=== PATIENT | female | born 1975 | race Caucasian/White ===

== ENCOUNTER 2023-03-24 21:30 | Observation (INO) | payer BC ==
--- OUTSIDE RECORDS SUMMARY | 2023-03-24 21:33 | XMS REPORT | Continuity of Care Document ---
:1975 Author Organization [facility] t Address [address] [facility] [address] [place] [address] Care Team Providers Name Role Phone Mack Harris MD Primary Care Physician [phone] Anali Moran Attending Clinician Naeem Whitfield Attending Clinician ELINA GUTHRIE Attending Clinician Unavailable ELINA GUTHRIE Admitting Clinician Unavailable Problems Condition Condition Condition Status Onset Resolution Last Treating Co mments Source Name Details Category Date Date Treatment Clinician Date Left-sided Left-sided Disease Recurre Aaliyah w: [facility] failure failure 00:[facility]: g of this Medic al 00 note Center might be different from the original. Per patient since 2006 left side of heart is "weak". Chest pain Chest pain Disease Active [facility] Palpitatio Palpitati Problem Active 2019-07-11 Memoria ns ons 3- 22:02:35 l (finding) (finding) 00:00: Francie hernandez Active 00 02/16/2012 Problem 07/11/2019 Data migrated from [employer] on 04/25/15. [facility] Group Chest pain Chest Problem Active 2019-07-11 Allan christianson (finding) pain 3- 22:02:35 l (finding) 00:00: Jesús Active 00 02/16/2012 Problem 07/11/2019 Data migrated from [employer] on 04/25/15. Medical Group Anxiety Anxiety Problem Active 2019-07-11 Me moria (finding) (finding) 22:02:35 l Active [facility] Problem 07/11/2019 Medical Group Benign Benign Problem Active 2019-07-11 Jose petra essential essential 22:02:35 l hypertensi hypertensi He rmann on on (disorder) (disorder) Active Problem 07/11/2019 Data migrated from [facility] on 04/25/15. Medical Group Edema of Edema of Problem Active 2019-07-11 Memoria lower lower 22:02:35 l extremity extremity Herm mary (finding) (finding) Active Problem 07/11/2019 Medical Group Ex-smoker Ex-smoker Problem Active 2019-07-11 Memoria (finding) (finding) 22:02:35 l Active [facility] Problem 07/11/2019 Medical Group Hypertensi Hypertens Problem Active 2019-07-11 Memoria ve juanito 22:02:35 l disorder, disorder, Herm mary systemic systemic arterial arterial (disorder) (disorder) Active Problem 07/11/2019 Medical Group Injury of Injury of Problem Active 2019-07-11 Memoria upper arm upper arm 22:02:35 l (disorder) (disorder) He rmann Active Problem 07/11/2019 Medical Group Reflux Reflux Problem Active 2019-07-11 Mem oria (finding) (finding) 22:02:35 l Active [facility] Problem 07/11/2019 Medical Group Syncope Syncope Problem Active 2019-07-11 Me moria (disorder) (disorder) 22:02:35 l Active [facility] Problem 07/11/2019 Medical Group Morbid Morbid Disease Recurre [facility] (severe[facility] (severe[facility] obesity obesity Medical due to due to Center excess excess calories calories Panic Panic Disease Active [facility] attack attack [facility] Allergies, Adverse Reactions, Alerts Allergy Allergy Status Severity Reaction(s) Onset Inactive Treating Comm ents Source Name Type Date Date Clinician Jace Donald Active Hives Method i omycin ty to [facility] adverse 00:00: Hospita reaction 00 l s to drug Erythrom Propensi Active GI Method i ycin ty to Intolerance -12 st adverse 00:00: Hospita reaction 00 l s to drug Hydrocod Propensi Active Anxiety Metho di one ty to 9-12 st adverse 00:00: Hospita reaction 00 l s to drug Clindamy Propensi Active Nausea And [facility] Hcl ty to Vomiting 08-14 [facility] adverse 00:00: Medical reaction 00 Center s Tetracyc Propensi Active Nausea And [facility] lines ty to Vomiting 08-14 [facility] adverse 00:00: Medical reaction 00 Center s Clarithr Drug Active [facility] omycin Allergy 04-20 [facility] 00:00: Medical 00 [facility] Penicill Drug Active [facility] ins Allergy 04-20 [facility] 00:00: Medical 00 [place] penicill penicill Active Memori a ins<sup> ins<sup> l 1</sup> 1</sup> Jesús erythrom erythrom Active [facility] a ycin ycin l [facility] Family History Family Member Diagnosis Comments Start Date Stop Date Source Natural daughter Diabetes [facility] Natural father Cancer [facility] Maternal grandmother Heart disease [facility] Natural mother Arthritis [facility] Natural mother Cancer [facility] Natural mother Heart disease [facility] Natural mother Hyperlipidemia [facility] Natural son Mental illness [facility] Social History Social Habit Start Date Stop Date Quantity Comments Source Gender identity [facility] History of tobacco Current smoker [facility] Alcohol intake 2019-08-12 2019-08-12 Current drinker [facility] 00:00:00 00:00:00 of [facility] (finding) Alcohol Comment 2019-08-08 2019-08-08 occasional [facility] 00:[facility]:00 00:[facility]:00 Hospital Tobacco use and 2019-08-08 2019-08-08 Smokeless tobacco Me thodist exposure 00:00:00 00:00:00 non-user Hospital Cigarettes smoked 2018-08-14 2018-08-14 [facility] current (pack per 00:00:00 00:00:00 Medical Center day) - Reported Sex Ass[birth year] At [birth year] [facility] 00:[facility]:00 00:[facility]:00 Hospital Smoking Status Start Date Stop Date Source Social History 2019-06-04 18:15:51 2019-06-04 18:15:51 [facility] Medications Ordered Filled Start Stop Current Ordering Indication Dosage Frequency Signature Comments Components Source Medication Medication Date Date Medication? Clinician (SIG) Name Name meloxicam Yes 15mg QD Take 15 mg Me thodi (MOBIC) 15 9-[address] mg tablet 11:33: daily. Hospit a 18 l metaxalone Yes 800mg [id number] Take 800 [facility] (SKELAXIN) 9-[id number] 800 MG 11:33: 3D mouth 3 Hospita tablet 18 (three) l times a day. ALPRAZolam Yes .25mg QD Take 0.25 M ethodi (XANAX) 9-[address] 0.25 MG 11:33: mouth Hospita tablet 18 nightly as l needed for anxiety. Lidocaine Yes 1 patch, Jose petra 0.05 MG/MG 7 TOP, l Transdermal 18:25: Daily, # He rmann Patch 00 30 patch, 2 Refill(s), Pharmacy: [place] [id number] Alprazolam Yes 0.25 mg = Me moria 0.25 MG 06-04 1 tab, PO, l Oral Tablet 18:17: TID, 0 Herm mary [Xanax] 00 Refill(s) Advair Yes 1 puff, Memoria Diskus 100 709 INHALATION l mcg-50 mcg 18:04: , BID, 0 [facility] inhalation 00 Refill(s) powder meloxicam Yes 15 mg = 1 Mem oria 15 mg oral 09 tab, PO, l tablet 18:04: Daily, # [facility] 00 90 tab, 0 Refill(s) enalapril Yes 2.5mg QD Take 2.[address] (VASOTEC) 9-18 mg by [facility] 2.5 MG 23:01: mouth Medical tablet 49 daily. Center meclizine Yes 25mg Take [address] (ANTIVERT) 9-18 by mouth 3 Arlene es 32 MG 23:01: (three) Medical tablet 49 times Center daily as needed Unsure of mg. . escitalopra Yes 5mg QD Take [address] m oxalate 6-28 by mouth [facility] (LEXAPRO) 5 18:28: daily Medic al MG tablet 28 Takes 1/2 Cente r tablet for 2.5 mg . meloxicam Yes 15mg QD Take [address] (MOBIC) 15 6-28 by mouth [facility] MG tablet 18:28: daily. Medica l 28 Center ALPRAZolam Yes .25mg Take 0.[address] (XANAX) 6-28 mg by [facility] 0.25 MG 18:28: mouth Medical tablet 28 every Center night as needed for Anxiety. aspirin 81 Yes 81mg QD Take [address] MG EC 6-28 by mouth [facility] tablet 18:28: daily. Medical 28 Center ranitidine Yes gastroesoph 150mg Take [address] (ZANTAC) 6-28 ageal mg by [facility] 150 MG 18:28: reflux mouth 2 Medica l tablet 28 disease (two) Center times daily as needed for Heartburn. Vital Signs Vital Name Observation Time Observation Value Comments Source Temperature Oral (F) 2019-06-04 18:06:00 98.0 F [facility] Heart Rate 2019-06-04 18:06:00 [facility] BMI Calculated 2019-06-04 18:06:00 Ioana al Jesús Weight 2019-06-04 18:06:00 [facility] Height 2019-06-04 18:06:00 175.26 cm [facility] Systolic (mm Hg) 2019-06-04 18:06:00 Jose Espinosa Diastolic (mm Hg) 2019-06-04 18:06:00 [facility] berenice [facility] Procedures Procedure Date / Time Performed Performing Clinician Marcel edmond Arthroscopy of knee [facility] Repair of meniscus [facility] Plan of Care Planned Activity Planned Date Details Comments Source Future Scheduled 2023-02-26 COVID-19 VACCINE (#1) [facility] Test 11:17:23 [code = COVID-19 VACCINE (#1)] Future Scheduled 2023-02-26 Screening for [facility] Test 11:17:23 malignant neoplasm of cervix (procedure) [code = 596915559] Future Scheduled 2023-02-26 BREAST CANCER [facility] Test 11:17:23 SCREENING [code = BREAST CANCER SCREENING] Future Scheduled 2023-02-26 COLONOSCOPY SCREENING [facility] Test 11:17:23 [code = COLONOSCOPY SCREENING] Future Scheduled 2023-02-26 INFLUENZA VACCINE [facility] Test 11:17:23 [code = INFLUENZA VACCINE] Encounters Start End Encounter Admission Attending Care Care Encounter Source Date/Time Date/Time Type Type Clinicians Facility Department ID 2019-07-09 2019-07-09 Ambulatory nullFlavo [facility] [id number] Memoria 18:15:00 18:15:00 Pre-Reg r Primary 03 l Care Charly Dolan sarita 2019-07-09 2019-07-09 Outpatient JESSIECRISPIN CRISPIN [id number] Memoria 13:15:00 13:15:00 03 radha Espinosa 2019-07-09 2019-07-09 Outpatient Dean [facility] [id number] 13:15:00 13:15:00 Anali 03 2019-06-04 2019-06-05 Outpatient nullFlavo [facility] [id number] Memoria 18:00:00 04:59:59 r Primary 02 l Genaro Dolan nn 2019-06-04 2019-06-04 Outpatient Nahid [facility] [id number] 13:00:00 23:59:59 Naeem Silvestre 02 2019-06-04 2019-06-[address] [id number] Memoria 13:00:00 13:00:00 02 radha [facility] Results Test Description Test Time Test Comments Results Result Comments Source POCT-GLUCOSE METER 2017-05-24 17:19:00 Test Item Value Reference Range Interpretation Comme [facility] POC-GLUCOSE METER ([place]) (test 105 mg/dL 70-110 TESTED AT [facility] [id number] [facility] code = 1538) WAY [facility] [address] TSH/FREE T4 IF [id number] 16:48:00 Test Item Value Reference Range Interpretation Comments THYROID STIMULATING HORMONE 1.25 uIU/mL 0.35-5.50 (BEAKER) (test code = 772) [id number] 15:15:00 Test Item Value Reference Range Interpretation Comments D-DIMER QUANTITATIVE (BEAKER) 0.45 MG/L FEU <0.50 (test code = 671) Intended Use: The D-Dimer Assay can be used to aid in the diagnosis of Deep Vein Thrombosis (DVT) and Pulmonary Embolism Disease (PED).In patients with low pre- test probability, various studies concerning STA Liatest D-dimer test have reported that with a cutoff value of 0.50 MG/L FEU, the Negative Predictive Value (NPV) regarding the exclusion of thrombosis is within 95-100% range. CREATINE KINASE (CK), TOTAL AND [id number] 06:26:00 Test Item Value Reference Range Interpretation Comments CREATINE KINASE TOTAL (BEAKER) 110 U/L 29-168 (test code = 380) CREATINE KINASE-MB (BEAKER) (test 1.6 ng/mL 0.0-4.9 code = 750) CREATINE KINASE-MB INDEX (BEAKER) 1.5 % (test code = 395) CK-MB Reference Range:<5 Normal5-10 Borderline>10 AbnormalTROPONIN I 2017-05-24 06:26:00 Test Item Value Reference Range Interpretation Comments TROPONIN I (BEAKER) (test code = 0.01 ng/mL 0.00-0.15 397) Troponin I (TnI) levels must be interpreted in the context of the presenting symptoms and the clinical findings. Elevated TnI levels indicate myocardial damage, but are not specific for ischemic heart disease. Elevated TnI levels are seen in patients with other cardiac conditions (including myocarditis and congestive heart failure), and slight TnI elevations occur in patients with other conditions, including sepsis, renal failure, acidosis, acute neurological disease, and persistent tachyarrhythmia.HEPATIC FUNCTION [id number] 06:18:00 Test Item Value Reference Range Interpretation Comments TOTAL PROTEIN (BEAKER) (test code = 6.0 gm/dL 6.0-8.5 770) ALBUMIN (BEAKER) (test code = 1145) 3.4 g/dL 3.5-5.0 L BILIRUBIN TOTAL (BEAKER) (test code 0.3 mg/dL 0.1-1.3 = 377) BILIRUBIN DIRECT (BEAKER) (test 0.1 mg/dL 0.0-0.5 code = 706) ALKALINE PHOSPHATASE (BEAKER) (test 51 U/L 30-115 code = 346) AST (SGOT) (BEAKER) (test code = 12 U/L 5-40 353) ALT (SGPT) (BEAKER) (test code = 13 U/L 6-50 347) [id number] 06:18:00 Test Item Value Reference Range Interpretation Comments MAGNESIUM (BEAKER) (test code = 1.8 mg/dL 1.5-3.0 627) BASIC METABOLIC [id number] 06:18:00 Test Item Value Reference Range Interpretation Comments SODIUM (BEAKER) 140 meq/L 135-148 (test code = 381) POTASSIUM (BEAKER) 3.8 meq/L 3.5-5.5 (test code = 379) CHLORIDE (BEAKER) 107 meq/L 98-106 H (test code = 382) CO2 (BEAKER) (test 27 meq/L 20-31 code = 355) BLOOD UREA NITROGEN 14 mg/dL 10-26 (BEAKER) (test code = 354) CREATININE (BEAKER) 0.73 mg/dL 0.50-1.20 (test code = 358) GLUCOSE RANDOM 96 mg/dL 70-110 (BEAKER) (test code = 652) CALCIUM (BEAKER) 8.6 mg/dL 8.5-10.5 (test code = 697) EGFR (BEAKER) (test 87 mL/min/1.73 ESTIMA RITIKA GFR IS code = 1092) sq m NOT ACCURATE CREATININE CLEARANCE IN PREDICTING GLOMERULAR FILTRATION RATE . ESTIMATED GFR I S NOT APPLICABLE FOR DIALYSIS PATIEN TS. CBC W/PLT COUNT & AUTO [id number] 05:53:00 Test Item Value Reference Range Interpretation Comments WHITE BLOOD CELL COUNT (BEAKER) 5.2 K/ L 4.0-10.0 (test code = 775) RED BLOOD CELL COUNT (BEAKER) 4.12 M/ L 4.00-5.00 (test code = 761) HEMOGLOBIN (BEAKER) (test code = 12.1 GM/DL 12.0-15.0 410) HEMATOCRIT (BEAKER) (test code = 37.1 % 36.0-45.0 411) MEAN CORPUSCULAR VOLUME (BEAKER) 89.9 fL 82.0-99.0 (test code = 753) MEAN CORPUSCULAR HEMOGLOBIN 29.5 pg 27.0-33.0 (BEAKER) (test code = 751) MEAN CORPUSCULAR HEMOGLOBIN CONC 32.8 GM/DL 32.0-36.0 (BEAKER) (test code = 752) RED CELL DISTRIBUTION WIDTH 12.4 % 12.0-15.0 (BEAKER) (test code = 412) PLATELET COUNT (BEAKER) (test 257 K/CU MM 150-430 code = 756) MEAN PLATELET VOLUME (BEAKER) 6.7 fL 6.5-10.5 (test code = 754) NUCLEATED RED BLOOD CELLS 0 /100 WBC 0-0 (BEAKER) (test code = 413) NEUTROPHILS RELATIVE PERCENT 55 % (BEAKER) (test code = 429) LYMPHOCYTES RELATIVE PERCENT 35 % (BEAKER) (test code = 430) MONOCYTES RELATIVE PERCENT 8 % (BEAKER) (test code = 431) EOSINOPHILS RELATIVE PERCENT 2 % (BEAKER) (test code = 432) BASOPHILS RELATIVE PERCENT 0 % (BEAKER) (test code = 437) NEUTROPHILS ABSOLUTE COUNT 2.80 K/ L 1.80-8.00 (BEAKER) (test code = 670) LYMPHOCYTES ABSOLUTE COUNT 1.80 K/ L 1.48-4.50 (BEAKER) (test code = 414) MONOCYTES ABSOLUTE COUNT (BEAKER) 0.40 K/ L 0.00-1.30 (test code = 415) EOSINOPHILS ABSOLUTE COUNT 0.10 K/ L 0.00-0.50 (BEAKER) (test code = 416) BASOPHILS ABSOLUTE COUNT (BEAKER) 0.00 K/ L 0.00-0.20 (test code = 417) B-TYPE NATRIURETIC FACTOR (BNP)2017-05-24 01:31:00 Test Item Value Reference Range Interpretation Comments B-TYPE NATRIURETIC PEPTIDE (BEAKER) 42 pg/mL 0-100 (test code = 700) CREATINE KINASE (CK), TOTAL AND [id number] 01:30:00 Test Item Value Reference Range Interpretation Comments CREATINE KINASE TOTAL (BEAKER) 119 U/L 29-168 (test code = 380) CREATINE KINASE-MB (BEAKER) (test 1.8 ng/mL 0.0-4.9 code = 750) CREATINE KINASE-MB INDEX (BEAKER) 1.5 % (test code = 395) CK-MB Reference Range:<5 Normal5-10 Borderline>10 AbnormalTROPONIN I 2017-05-24 01:30:00 Test Item Value Reference Range Interpretation Comments TROPONIN I (BEAKER) (test code = 397) < ng/mL 0.00-0.15 Troponin I (TnI) levels must be interpreted in the context of the presenting symptoms and the clinical findings. Elevated TnI levels indicate myocardial damage, but are not specific for ischemic heart disease. Elevated TnI levels are seen in patients with other cardiac conditions (including myocarditis and congestive heart failure), and slight TnI elevations occur in patients with other conditions, including sepsis, renal failure, acidosis, acute neurological disease, and persistent tachyarrhythmia.C-REACTIVE [id number] 01:23:00 Test Item Value Reference Range Interpretation Comments C-REACTIVE PROTEIN (PADMINIAKER) (test 0.35 mg/dL 0.00-0.50 code = 676)
[2023-03-24] MEDS ORDERED: ASPIRIN EC 81 MG TAB PO ONE (21:53)
[2023-03-24] MEDS ORDERED: NITROGLYCERIN 1 GM PKT TD ONE (21:53)
[2023-03-24 21:56] LABS: Absolute Lymphocytes (CBC) 2.3 K/uL (0.7-4.9); Hematocrit 38.3 % (36.0-45.0); Lymphocytes % 38.6 % (15.3-44.8); MCV 87.3 fL (80-100); MPV 6.3 fL (7.6-11.3); RBC Red Blood Cell Count 4.39 M/uL (3.86-4.86)
[2023-03-24] MEDS ORDERED: BUMETANIDE 1 MG/4 ML VIAL ONE (22:03)
[2023-03-24 22:18] LABS: ALT/SGPT 38 U/L (13-56); AST/SGOT 21 U/L (15-37); Albumin 3.4 g/dL (3.4-5.0); Alkaline Phosphatase 71 U/L (45-117); BUN Blood Urea Nitrogen 15 mg/dL (7-18); Bicarbonate 30 mEq/L (21-32); Bilirubin Total 0.2 mg/dL (0.2-1.0); Glomerular Filtration Rate 76 ml/min (=/>90); Glucose Level 112 mg/dL (74-106); Magnesium 1.6 mg/dL (1.6-2.4); NT PRO-BNP 179 pg/mL (<125); Potassium 3.4 mEq/L (3.5-5.1); Protein, Total 6.9 g/dL (6.4-8.2); Sodium Level 137 mEq/L (136-145); Troponin High Sensitivity 10.8 pg/mL (<58.9)
[2023-03-24 22:24] LABS: Bilirubin Direct < 0.1 mg/dL (0-0.2)
[2023-03-24 22:31] LABS: Protime INR 0.95
--- NOTE | 2023-03-25 00:27 | ER ---
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 Patient richard stated had elevated BP issues for 4 days with restarting Lisinopril 10mg yesterday per her Dr. Coronavirus screen: Vaccine status: Patient reports being unvaccinated. Client denies travel out of the [place] in the last 14 days. At this time, the client does not indicate any symptoms associated with coronavirus-19. Ebola Screen: Patient negative for fever greater than or equal to 101.5 degrees Fahrenheit, and additional compatible Ebola Virus Disease symptoms. Initial Sepsis Screen: Does the patient meet any 2 criteria? No. Patient's initial sepsis screen is negative. Does the patient have a suspected source of infection? No. Patient's initial sepsis screen is negative. Risk Assessment: Do you want to hurt yourself or someone else? Patient reports no desire to harm self or others. 21:44 Method Of Arrival: Wheelchair mb9 21:44 Acuity: JESSICA 2 mb9 03/25 04:26 Onset of symptoms was March 24, 2023. as6 Historical: - Allergies: 03/24 21:48 Biaxin; mb9 - PMHx: 21:48 Hypertensive disorder; mb9 - PSHx: 21:48 back surgery; left knee surgery; mb9 - Immunization history:: Adult Immunizations not up to date. - Social history:: Patient/guardian denies using alcohol, street drugs, IV drugs, caffeine, over the counter diet medications, tobacco products, Smoking status: Patient/guardian denies using tobacco. - Family history:: not pertinent. Screenin:17 [facility] ED Fall Risk Assessment (Adult) Score/Fall Risk Level 0 - 2 = Low Risk. Abuse as6 screen: Denies threats or abuse. Denies injuries from another. Nutritional screening: No deficits noted. Tuberculosis screening: No symptoms or risk factors identified. Assessment: 21:40 General: Appears uncomfortable, obese, Behavior is cooperative, anxious, crying. Pain: as6 Complains of pain in chest. Neuro: Level of Consciousness is awake, alert, obeys commands, Oriented to person, place, time, situation. Cardiovascular: Reports chest pain, shortness of breath. Respiratory: Reports shortness of breath Respiratory effort is even, unlabored, Respiratory pattern is regular, symmetrical. 23:08 Reassessment: Patient appears in no apparent distress at this time. Patient and/or jb4 family updated on plan of care and expected duration. Pain level reassessed. Patient is alert, oriented x 3, equal unlabored respirations, skin warm/dry/pink. Vital Signs: 21:44 BP 176 / 113; Pulse 85; Resp 18; Temp 98.7; Pulse Ox 100% on R/A; Weight 158.76 kg; mb9 Height 5 ft. 8 in. ; Pain 5/10; 22:14 BP 164 / 92; Pulse 86; Resp 14 S; Pulse Ox 99% on R/A; as6 23:08 BP 128 / 80; Pulse 85; Resp 16; Pulse Ox 98% on R/A; jb4 03/25 00:00 BP 130 / 61; Pulse 98; Resp 18 S; Pulse Ox 98% on R/A; as6 01:00 BP 112 / 61; Pulse 83; Resp 19 S; Pulse Ox 98% on R/A; as6 02:00 BP 142 / 72; Pulse 94; Resp 18 S; Pulse Ox 99% on R/A; as6 04:25 BP 132 / 72; Pulse 84; Resp 19 S; Temp 97.9(O); Pulse Ox 98% on R/A; as6 03/24 21:44 Body Mass Index 53.22 (158.76 kg, 172.72 cm) mb9 03/24 21:44 Pain Scale: Adult 9 ED Course: 03/24 21:32 Patient arrived in ED. mb9 21:37 Colby Chapman MD is Attending Physician. sp4 21:43 Charles Sellers, KADEN is Primary Nurse. as6 21:46 Inserted saline lock: 20 gauge in right antecubital area, using aseptic technique. as6 Blood collected. 21:46 Basic Metabolic Panel Sent. as6 21:46 CBC with Diff Sent. as6 21:46 D-Dimer Sent. as6 21:46 LFT's Sent. as6 21:46 Magnesium Sent. as6 21:46 NT PRO-BNP Sent. as6 21:46 PT-INR Sent. as6 21:46 Troponin HS Sent. as6 21:48 Triage completed. mb9 21:48 Arm band placed on. as6 22:17 Placed in gown. Bed in low position. Call light in reach. Side rails up X 1. Client as6 placed on continuous cardiac and pulse oximetry monitoring. NIBP monitoring applied. 22:40 XRAY Chest (1 view) In Process Unspecified. EDMS 03/25 00:26 Vic Castro MD is Hospitalizing Provider. sp4 02:20 CT Chest For PE Angio In Process Unspecified. EDMS 02:20 CT Head Brain wo Cont In Process Unspecified. EDMS 04:26 No provider procedures requiring assistance completed. Patient admitted, IV remains in as6 place. 07:36 Primary Nurse role handed off by Charles Sellers, KADEN bp 07:36 Ralph Prasad, KADEN is Primary Nurse. bp Administered Medications: 03/24 21:58 Drug: Aspirin PO Chewable Tablet 324 mg Route: PO; as6 03/25 04:29 Follow up: Response: No adverse reaction as6 03/24 21:58 Drug: Nitroglycerin Transdermal Ointment 2 % 1 inches Route: Transdermal; Site: as6 anterior chest wall; 03/25 04:29 Follow up: Response: No adverse reaction as6 03/24 22:14 Drug: Bumetanide IVP 1 mg Route: IVP; Site: right antecubital; as6 03/25 04:29 Follow up: Response: No adverse reaction as6 02:19 Drug: Acetaminophen PO 1000 mg Route: PO; as6 04:29 Follow up: Response: No adverse reaction as6 02:19 Not Given (Patient Refused): Ibuprofen PO 800 mg PO once as6 Medication: 04:26 VIS not applicable for this client. as6 Outcome: 00:26 Decision to Hospitalize by Provider. sp4 04:26 Admitted to ER Hold. Please see [facility] for further documentation. as6 04:26 Condition: stable 04:26 Instructed on the need for admit. 16:34 Patient left the ED. bp Signatures: Dispatcher [facility] EDAidan Pulido, RN RN jb4 Ralph Prasad, RN RN bp Charles Sellers, KADEN RN as6 Jessica Bates, RN RN mb9 Colby Chapman MD MD sp4 Corrections: (The following items were deleted from the chart) 03/24 22:17 22:15 General: Appears uncomfortable, obese, Behavior is cooperative, anxious, crying, as6 as6 22:17 22:15 Pain: Complains of pain in chest as6 as6 22:17 22:15 Neuro: Level of Consciousness is awake, alert, obeys commands, Oriented to as6 person, place, time, situation, as6 22:17 22:15 Cardiovascular: Reports chest pain, shortness of breath, as6 as6 22:17 22:15 Respiratory: Reports shortness of breath Respiratory effort is even, unlabored, as6 Respiratory pattern is regular, symmetrical, as6
--- NOTE | 2023-03-25 00:27 | EDPHYS ---
Physician Documentation [facility] Name: Jacinto Paige Age: 47 yrs Sex: Female : 1975 Arrival Date: 03/24/2023 Time: 21:30 Bed 5 Private MD: ED Physician Colby Chapman HPI: 03/25 00:19 This 47 yrs old Female presents to ER via Wheelchair with complaints of chest sp4 pain. 00:19 47-year-old female with history of morbid obesity left ventricular heart failure sp4 hypertension presents with acute onset chest pain just prior to arrival associated with radiation to left arm. Patient on arrival reports anxiety. Patient denied shortness of breath, syncope denied diaphoresis and palpitations. Patient's cupola liner helper is Dr. Castle , primary MD is Dr. Flood. Historical: - Allergies: 03/24 21:48 Biaxin; mb9 - PMHx: 21:48 Hypertensive disorder; mb9 - PSHx: 21:48 back surgery; left knee surgery; mb9 - Immunization history:: Adult Immunizations not up to date. - Social history:: Patient/guardian denies using alcohol, street drugs, IV drugs, caffeine, over the counter diet medications, tobacco products, Smoking status: Patient/guardian denies using tobacco. - Family history:: not pertinent. ROS: 03/25 00:19 Constitutional: Negative for fever, chills, and weight loss, Eyes: Negative for injury, sp4 pain, redness, and discharge, ENT: Negative for injury, pain, and discharge, Neck: Negative for injury, pain, and swelling, Cardiovascular: Negative for palpitations, positive for chest pain and bilateral lower extremity edema Respiratory: Negative for shortness of breath, cough, wheezing, and pleuritic chest pain, Abdomen/GI: Negative for abdominal pain, nausea, vomiting, diarrhea, and constipation, Back: Negative for injury and pain, : Negative for injury, bleeding, discharge, and swelling, MS/Extremity: Negative for injury and deformity, Skin: Negative for injury, rash, and discoloration, Neuro: Negative for headache, weakness, numbness, tingling, and seizure, Psych: Negative for depression, positive for anxiety Allergy/Immunology: Negative for hives, rash, and allergies Endocrine: Negative for neck swelling, polydipsia, polyuria, polyphagia, and weight changes Hematologic/Lymphatic: Negative for swollen nodes, abnormal bleeding, and unusual bruising Exam: 00:19 Constitutional: This is a well developed, well nourished patient who is awake, alert, sp4 and in no acute distress. Morbidly obese female appears anxious Head/Face: Normocephalic, atraumatic. Eyes: Pupils equal round and reactive to light, extra-ocular motions intact. Lids and lashes normal. Conjunctiva and sclera are not injected. Cornea within normal limits. Periorbital areas with no swelling, redness, or edema. ENT: Nares patent. No nasal discharge, no septal abnormalities noted. Tympanic membranes are normal and external auditory canals are clear. Oropharynx with no redness, swelling, or masses, exudates, or evidence of obstruction, uvula midline. Mucous membranes moist. Neck: Trachea midline, no thyromegaly or masses palpated, and no cervical lymphadenopathy. Supple, full range of motion without nuchal rigidity, or vertebral point tenderness. No Meningismus. Chest/axilla: Normal chest wall appearance and motion. Nontender with no deformity. No lesions are appreciated. Cardiovascular: Regular rate and rhythm with a normal S1 and S2. No gallops, murmurs, or rubs. Normal PMI, no JVD. No pulse deficits. Bilateral lower extremity edema with pitting moderate edema Respiratory: Lungs have equal breath sounds bilaterally, clear to auscultation and percussion. No rales, rhonchi or wheezes noted. No increased work of breathing, no retractions or nasal flaring. Abdomen/GI: Soft, non-tender, with normal bowel sounds. No distension or tympany. No guarding or rebound. No evidence of tenderness throughout. Back: No spinal tenderness. No costovertebral tenderness. Skin: Warm, dry with normal turgor. Normal color with no rashes, no lesions, and no evidence of cellulitis. MS/ Extremity: Pulses equal, no cyanosis. Neurovascular intact. Full, normal range of motion. Bilateral lower extremity edema with pitting Neuro: Awake and alert, GCS 15, oriented to person, place, time, and situation. Cranial nerves II-XII grossly intact. Motor strength 5/5 in all extremities. Sensory grossly intact. Psych: Awake, alert, with orientation to person, place and time. Behavior, mood, and affect are within normal limits 00:19 ECG was reviewed by the Attending Physician. Normal sinus rhythm at rate of 94 EKG time sp4 [address] elevation or depression, normal EKG Vital Signs: 03/24 21:44 BP 176 / 113; Pulse 85; Resp 18; Temp 98.7; Pulse Ox 100% on R/A; Weight 158.76 kg; mb9 Height 5 ft. 8 in. ; Pain 5/10; 22:14 BP 164 / 92; Pulse 86; Resp 14 S; Pulse Ox 99% on R/A; as6 23:08 BP 128 / 80; Pulse 85; Resp 16; Pulse Ox 98% on R/A; jb4 03/25 00:00 BP 130 / 61; Pulse 98; Resp 18 S; Pulse Ox 98% on R/A; as6 01:00 BP 112 / 61; Pulse 83; Resp 19 S; Pulse Ox 98% on R/A; as6 02:00 BP 142 / 72; Pulse 94; Resp 18 S; Pulse Ox 99% on R/A; as6 04:25 BP 132 / 72; Pulse 84; Resp 19 S; Temp 97.9(O); Pulse Ox 98% on R/A; as6 03/24 21:44 Body Mass Index 53.22 (158.76 kg, 172.72 cm) mb9 03/24 21:44 Pain Scale: Adult mb9 MDM: 03/24 21:39 Patient medically screened. sp4 03/25 00:19 Differential Diagnosis altered mental status. Data reviewed: vital signs, nurses notes, sp4 lab test result(s), cardiac enzymes, CBC, electrolytes, hepatic panel, EKG, radiologic studies, plain films. Consideration of Admission/Observation Patient was admitted/placed on observation. Escalation of care including admission/observation considered. Management of patient was discussed with the following: Hospitalist: Dr. Matthew simons PA. ED course: 39-year-old female with risk factors of hypertension, morbid obesity, presents with acute onset midsternal chest pain with radiation to left arm, no history of prior stents. Patient moderate to high risk for acute coronary syndrome, EKG is unremarkable, troponin negative, D-dimer slightly elevated but does not suggest PE, patient warrants admission for rule out ACS. . 03/24 21:39 Order name: Basic Metabolic Panel; Complete Time: 23:38 sp4 03/24 21:39 Order name: CBC with Diff; Complete Time: 23:38 sp4 03/24 21:39 Order name: D-Dimer; Complete Time: 23:38 sp4 03/24 21:39 Order name: LFT's; Complete Time: 23:38 sp4 03/24 21:39 Order name: Magnesium; Complete Time: 23:38 sp4 03/24 21:39 Order name: NT PRO-BNP; Complete Time: 23:38 sp4 03/24 21:39 Order name: PT-INR; Complete Time: 23:38 sp4 03/24 21:39 Order name: Troponin HS; Complete Time: 23:38 sp4 03/25 05:44 Order name: CBC with Automated Diff; Complete Time: 06:42 EDMS 03/25 05:47 Order name: Basic Metabolic Panel; Complete Time: 06:42 EDMS 03/25 05:47 Order name: Troponin High Sensitivity; Complete Time: 06:42 EDMS 03/25 05:47 Order name: Lipid Profile; Complete Time: 06:42 EDMS 03/25 10:28 Order name: Troponin High Sensitivity EDMS 03/24 21:39 Order name: XRAY Chest (1 view) sp4 03/25 00:51 Order name: CT Chest For PE Angio la1 03/25 02:02 Order name: CT Head Brain wo Cont 03/24 21:39 Order name: EKG; Complete Time: 21:39 sp4 03/24 21:39 Order name: Cardiac monitoring; Complete Time: 21:46 sp4 03/24 21:39 Order name: EKG - Nurse/Tech; Complete Time: 21:46 03/24 21:39 Order name: IV Saline Lock; Complete Time: 21:46 sp4 03/24 21:39 Order name: Labs collected and sent; Complete Time: 21:46 sp4 03/24 21:39 Order name: O2 Per Protocol; Complete Time: 21:46 sp4 03/24 21:39 Order name: O2 Sat Monitoring; Complete Time: 21:46 EC:19 Rate is 94 beats/min. Rhythm is regular, Normal Sinus Rhythm. QRS [place] is Normal. DC sp4 interval is normal. QRS interval is normal. QT interval is normal. T waves are Normal. No ST changes noted. Clinical impression: Normal ECG. Interpreted by me. Administered Medications: 03/24 21:58 Drug: Aspirin PO Chewable Tablet 324 mg Route: PO; 03/25 04:29 Follow up: Response: No adverse reaction 03/24 21:58 Drug: Nitroglycerin Transdermal Ointment 2 % 1 inches Route: Transdermal; Site: as6 anterior chest wall; 03/25 04:29 Follow up: Response: No adverse reaction 03/24 22:14 Drug: Bumetanide IVP 1 mg Route: IVP; Site: right antecubital; as03/25 04:29 Follow up: Response: No adverse reaction 02:19 Drug: Acetaminophen PO 1000 mg Route: PO; : Follow up: Response: No adverse reaction as6 02:19 Not Given (Patient Refused): Ibuprofen PO 800 mg PO once as6 Disposition Summary: 03/25/23 00:26 Hospitalization Ordered Hospitalization Status: Observation sp4 Provider: Vic Castro sp4 Condition: Stable sp4 Problem: new sp4 Symptoms: have improved sp4 Bed/Room Type: Standard sp4 Location: [facility] ER HOLD(03/25/23 03:47) cg Room Assignment: ERHOLD-(03/25/23 03:47) cg Diagnosis - Angina pectoris, unspecified sp4 - Hypertensive urgency sp4 Discharge Instructions: - Discharge Summary Sheet bp Forms: - Work release form bp - Medication Reconciliation Form sp4 - SBAR form sp4 Signatures: Dispatcher [employer] Autumn Abel RN RN cg Slawson, Ashby, RN RN as6 Jessica aBtes RN RN [id number] Colby Chapman MD MD sp4 Corrections: (The following items were deleted from the chart) 03:47 00:26 Telemetry/MedSurg (observation) sp4 cg 03:47 00:26 sp4 cg
[2023-03-25] MEDS ORDERED: ACETAMINOPHEN 500 MG TAB ONE (02:16)
[2023-03-25] MEDS ORDERED: IBUPROFEN 400 MG TAB ONE (02:17)
--- NOTE | 2023-03-25 03:36 | P.HP ---
Certification for Inpatient Patient admitted to: Observation With expected LOS: <2 Midnights Patient will require the following post-hospital care: None Practitioner: I am a practitioner with admitting privileges, knowledge of patient current condition, hospital course, and medical plan of care. Services: Services provided to patient in accordance with Admission requirements found in Title 42 Section 412.3 of the Code of Federal Regulations Patient History Date of Service: 03/25/23 Reason for admission: Chest pain History of Present Illness: 47-year-old female with history of chronic diastolic congestive heart failure, hypertension presents the emergency department with chief complaint of chest pain. She reports her blood pressure has been elevated the past couple of days, at home she checked her blood pressure and it was 180/110 so she decided to come to the emergency department, while on her way to the hospital she developed left-sided chest pain described as tightness radiating to the left arm. She was evaluated in the emergency department her labs were significant for D-dimer 582 potassium 3.4 initial high-sensitivity troponin negative EKG negative for STEMI criteria CT PE protocol was performed which was negative for pulmonary embolism. ED provider wishes to admit under observation for ACS rule out. - Past Medical/Surgical History -: Chronic diastolic congestive heart failure -: Hypertension Psychosocial/ Personal History: Patient lives at home with family - Family History Family History: Reviewed- Non-Contributory - Social History Smoking Status: Never smoker Alcohol use: No CD- Drugs: No Caffeine use: Yes Place of Residence: Home Review of Systems 10-point ROS is otherwise unremarkable Respiratory: Shortness of Breath Cardiovascular: Chest Pain Physical Examination - Physical Exam General: Alert, In no apparent distress, Oriented x3 HEENT: Atraumatic, PERRLA, Mucous membr. moist/pink, EOMI, Sclerae nonicteric Neck: Supple, 2+ carotid pulse no bruit, No LAD, Without JVD or thyroid abnormality Respiratory: Clear to auscultation bilaterally Cardiovascular: Regular rate/rhythm, Normal S1 S2, Edema Capillary refill: <2 Seconds Gastrointestinal: Normal bowel sounds, No tenderness Musculoskeletal: No tenderness Integumentary: No rashes Neurological: Normal speech, Normal strength at 5/5 x4 extr, Normal tone, Normal affect - Studies Laboratory Data (last 24 hrs) 03/24/23 21:40: PT 10.5, INR 0.95 03/24/23 21:40: WBC 5.90, Hgb 13.0, Hct 38.3, Plt Count 283 03/24/23 21:40: Sodium 137, Potassium 3.4 L, BUN 15, Creatinine 0.93, Glucose 112 H, Magnesium 1.6, Total Bilirubin 0.2, AST 21, ALT 38, Alkaline Phosphatase 71 Assessment and Plan - Plan Assessment: Chest pain rule out ACS Hypertensive urgency with underlying primary hypertension Chronic diastolic congestive heart failure Morbid obesity Plan: Chest pain rule out ACS Trend troponins, monitor on telemetry, cardiology consult in place. Given aspirin, CT PE protocol negative. Lipid panel this morning. Hypertensive urgency with underlying primary hypertension Blood pressure significantly. At this time, continue patient's home medications including Bumex, lisinopril, she is unsure of dose we will restart when verified. Chronic diastolic congestive heart failure Does not appear grossly overloaded at this time, continue Bumex p.o. Morbid obesity Counseled on need for lifestyle changes. DVT PPX: Lovenox Code status: Full Discharge Plan: Home Plan to discharge in: 24 Hours - Advance Directives Does patient have a Living Will: No Does patient have a Durable POA for Healthcare: No - Code Status/Comfort Care Code Status Assessed: Yes (Full code) Critical Care: No Time Spent Managing Pts Care (In Minutes): 55
[2023-03-25] MEDS ORDERED: ONDANSETRON 4 MG/2 ML VIAL IV PRN (04:39)
[2023-03-25] MEDS ORDERED: MORPHINE 2 MG/ML SYR IV PRN (04:39)
[2023-03-25 04:44] VITALS: BMI 53.1
[2023-03-25 05:37] LABS: Absolute Lymphocytes (CBC) 2.1 K/uL (0.7-4.9); Hematocrit 34.7 % (36.0-45.0); Lymphocytes % 33.5 % (15.3-44.8); MCV 87.1 fL (80-100); MPV 6.7 fL (7.6-11.3); RBC Red Blood Cell Count 3.98 M/uL (3.86-4.86)
[2023-03-25 05:46] LABS: Potassium 3.8 mEq/L (3.5-5.1); Troponin High Sensitivity 12.1 pg/mL (<58.9)
[2023-03-25] MEDS ORDERED: ASPIRIN EC 81 MG TAB PO SCH (09:00)
[2023-03-25] MEDS: BUMETANIDE 1 MG TABLET PO SCH ×2 (09:00→16:30)
--- NOTE | 2023-03-25 14:55 | P.DS ---
Admission Date: 03/25/23 Discharge Date: 03/25/23 Disposition: ROUTINE DISCHARGE Discharge Condition: GOOD Reason for Admission: Chest pain Consultations: Cardiology - Dr. Pimentel Brief History of Present Illness: 47yo F, PMH: chronic diastolic congestive heart failure, hypertension Patient presents the emergency department with chief complaint of chest pain. She reports her blood pressure has been elevated the past couple of days, at home she checked her blood pressure and it was 180/110 so she decided to come to the emergency department, while on her way to the hospital she developed left- sided chest pain described as tightness radiating to the left arm. She was evaluated in the emergency department her labs were significant for D-dimer 582 potassium 3.4 initial high-sensitivity troponin negative EKG negative for STEMI criteria CT PE protocol was performed which was negative for pulmonary embolism. ED provider wishes to admit under observation for ACS rule out. Hospital Course: Problem List: Chest pain rule out ACS Hypertensive urgency with underlying primary hypertension Chronic diastolic congestive heart failure Morbid obesity Patient presented with bilateral lower extremity edema / acute CHF exacerbation with high blood pressure after changes to her diuretics were made. She had improvement with bumex. Dr Pimentel was consulted and agreed that patient had improved and stable for discharge home. Blood pressure was normal and stable. Recommended 1mg twice daily Bumex for now and lisinopril 10mg daily. Monitor b lood pressure and daily weights. Follow up with Dr. Pimentel later this week. Bloodwork (BMP) to check potassium and kidney function. Physical Exam: General: Alert, In no apparent distress, Oriented x3 HEENT: Atraumatic, PERRLA, Mucous membr. moist/pink, EOMI, Sclerae nonicteric Neck: Supple, 2+ carotid pulse no bruit, No LAD, Without JVD or thyroid abnormality Respiratory: Clear to auscultation bilaterally Cardiovascular: Regular rate/rhythm, Normal S1 S2, Edema Capillary refill: <2 Seconds Gastrointestinal: Normal bowel sounds, No tenderness Musculoskeletal: No tenderness Integumentary: No rashes Neurological: Normal speech, Normal strength at 5/5 x4 extr, Normal tone, Normal affec Vital Signs/Physical Exam: Temp Pulse Resp BP Pulse Ox 84 13 132/79 98 03/25/23 12:00 03/25/23 12:00 03/25/23 12:00 03/25/23 12:00 Laboratory Data at Discharge: WBC 6.20 thou/uL (4.3-10.9) 03/25/23 04:48 Hgb 11.7 g/dL (12.0-15.0) L D 03/25/23 04:48 Hct 34.7 % (36.0-45.0) L 03/25/23 04:48 Plt Count 251 thou/uL (152-406) 03/25/23 04:48 PT 10.5 SECONDS (9.5-12.5) 03/24/23 21:40 INR 0.95 03/24/23 21:40 Sodium 138 mEq/L (136-145) 03/25/23 04:48 Potassium 3.8 mEq/L (3.5-5.1) 03/25/23 04:48 BUN 16 mg/dL (7-18) 03/25/23 04:48 Creatinine 0.74 mg/dL (0.55-1.02) 03/25/23 04:48 Glucose 102 mg/dL (74-106) 03/25/23 04:48 Magnesium 1.6 mg/dL (1.6-2.4) 03/24/23 21:40 Total Bilirubin 0.2 mg/dL (0.2-1.0) 03/24/23 21:40 AST 21 U/L (15-37) 03/24/23 21:40 ALT 38 U/L (13-56) 03/24/23 21:40 Alkaline Phosphatase 71 U/L (45-117) 03/24/23 21:40 Triglycerides 106 mg/dL (<150) 03/25/23 04:48 Cholesterol 178 mg/dL (<200) 03/25/23 04:48 HDL Cholesterol 44 mg/dL (40-60) 03/25/23 04:48 Cholesterol/HDL Ratio 4.05 03/25/23 04:48 Physician Discharge Instructions: Patient presented with bilateral lower extremity edema / acute CHF exacerbation with high blood pressure after changes to her diuretics were made. She had improvement with bumex. Dr Pimentel was consulted and agreed that patient had improved and stable for discharge home. Blood pressure was normal and stable. Recommended 1mg twice daily Bumex for now and lisinopril 10mg daily. Monitor blood pressure and daily weights. Follow up with Dr. Pimentel later this week. Bloodwork (BMP) to check potassium and kidney function. Time spent managing pt's care (in minutes): 45
--- NOTE | 2023-03-25 15:17 | EKG ---
Test Date: 2023-03-24 Test Time: 21:35:36 Insect Control Inspector: MEASUREMENT RESULTS: Intervals: Rate: 94 MA: 172 QRSD: 84 QT: 362 QTc: 452 [place]: P: 66 MA: 172 QRS: 39 T: 31 INTERPRETIVE STATEMENTS: Normal sinus rhythm Normal ECG No previous ECG available for comparison Electronically Signed On 03-25-23 15:17:06 CDT by Jesus Pimentel
[2023-03-25 16:22] VITALS: BP 130/80
[2023-03-25 16:48] VITALS: TEMP 97.9; O2SAT 98
--- NOTE | 2023-03-25 19:28 | CON ---
Date of Consultation: 03/25/2023 Reason For Consultation: Chest pain. History Of Present Illness: 47-year-old female, history of diastolic heart failure, obesity, hyperte nsion. She has been having difficulty controlling her blood pressure lately and then the night befor e coming to the hospital, lying down, felt uncomfortable, short of breath, tight in the chest with ch est pressure, so presented to the emergency room. Her blood pressure was high and she had significan t fluid retention. With diuretics, she felt much better. Apparently, she was on Lasix and one of he r primary care doctor switched her to Bumex, but she stayed without Lasix for few days until she got her Bumex. Now, she is feeling better, lying flat. Past Medical History: As outlined above in the HPI. Medications: Refer to reconciliation sheet for detailed list. Allergies: NO KNOWN DRUG ALLERGIES. Social History: She does not smoke or drink. Does not use any drugs. Review of Systems: All systems reviewed. They were negative except as mentioned in HPI. Physical Examination: Vital Signs: Reviewed. Head and Neck: Pupils are equal, reactive to light. Intact eye movements. No cervical lymphadenopa thy. Neck is supple. Thyroid is not enlarged. Lungs: Decreased breathing sounds. No accessory muscle use or muscle retraction. Heart: Regular rate and rhythm. No extra sounds. Abdomen: Soft, nontender. Bowel sounds positive. No organomegaly. No masses or hernia. No rigidit y or rebound. Extremities: Trace edema 1+. No clubbing or cyanosis. Intact pulses. Skin: No rash. Neurological: Alert, awake, and oriented x3. No acute focal deficits appreciated. Investigations: BUN 16, creatinine 0.74, and hemoglobin is 11.7. Cardiac enzymes are negative. Assessment And Plan: 1.Chest pain. Cardiac enzymes are negative. This is likely noncardiac. Likely she just had signif icant fluid retention that may cause chest tightness and the orthopnea. Agree with diuresis. Appare ntly now she is on Bumex 0.5 mg twice a day, she can be discharged on that. Continue baby aspirin an d also I would add lisinopril 10 mg for blood pressure control and then she can be released and follo w up with me as an outpatient. We will then obtain a stress test and an echo if they were not done r ecently. 2.Congestive heart failure exacerbation, diastolic, much better with diuretics. Patient can be rele ased from cardiology standpoint. 3.Hypertension. Blood pressure is controlled now. /LAMIN Voice ID: [id number] Report ID: [id number]
--- NOTE | 2023-03-26 14:30 | RAD REPORT ---
EXAM DESCRIPTION: RAD - Chest Single View - 03/24/2023 10:38 pm CLINICAL HISTORY: Chest pain.. TECHNIQUE: AP portable chest x-ray upright on 03/24/2023, at 22: 33. COMPARISON: None. FINDINGS: Heart: Normal size and configuration. Mediastinal Structures: Normal and midline.. Lung Rosales: No active disease. Pulmonary Vascularity: Normal. Pleural Space: No active disease. Bony Structures: Normal. IMPRESSION: Normal study. Electronically signed by: Tres Austin MD 03/25/2023 12:46 AM CDT Due to temporary technical issues with the PACS/Fluency reporting system, reports are being signed by the in house radiologists without review as a courtesy to insure prompt reporting. The interpreting radiologist is fully responsible for the content of the report.
--- NOTE | 2023-03-26 14:35 | RAD REPORT ---
EXAM DESCRIPTION: CT - Chest For Pe Angio - 03/25/2023 7:45 am CLINICAL HISTORY: CHEST PAIN TECHNIQUE: Contiguous axial images obtained through the chest during angiographic phase following th e uneventful administration of IV contrast. Sagittal and coronal reformatted images were provided. 3- D MIP reformatted images were provided. This exam was performed according to our departmental dose-optimization program, which includes autom ated exposure control, adjustment of the mA and/or kV according to patient size and/or use of iterati ve reconstruction technique. COMPARISON: No prior exams provided for comparison. FINDINGS: Diagnostic quality: There is adequate opacification of the pulmonary arterial tree. Lungs: No focal consolidation. Airways are patent. Pleura: No effusion. No pneumothorax. Heart and pericardium: The heart is normal in size. No pericardial effusion. Mediastinum and bao: No pathologically enlarged lymph nodes. Lower neck and chest wall: Unremarkable Vessels: No evidence of pulmonary emboli. Limited visualization of subsegmental pulmonary arteries. . No thoracic aortic aneurysm. Upper abdomen: Unremarkable Bones: Unremarkable fatty infiltration of the liver. IMPRESSION: 1. No pulmonary embolic disease. Limited visualization of subsegmental pulmonary arter ies. 2. No focal consolidation. 3. Fatty infiltration of the liver. Electronically signed by: Maxwell Rausch MD 03/25/2023 2:59 AM CDT Due to temporary technical issues with the PACS/Fluency reporting system, reports are being signed by the in house radiologists without review as a courtesy to insure prompt reporting. The interpreting radiologist is fully responsible for the content of the report.
--- NOTE | 2023-03-26 15:25 | RAD REPORT ---
EXAM DESCRIPTION: CT - Head Brain Wo Cont - 03/25/2023 7:45 am CLINICAL HISTORY: 47 years, Female, DIZZINESS, HEADACHE COMPARISON: None. FINDINGS: Multiple transaxial tomograms of the brain were obtained from the base of the skull to the vertex without contrast. 2-D multiplanar reformats and the coronal and sagittal plane were performed and reviewed. This exam was performed according to our departmental dose-optimization protocol, which includes auto mated exposure control, adjustment of the mA and/or kV according to patient size and/or use of iterat juanito reconstruction technique. Brain parenchyma as well as the alex and white matter differentiation demonstrate to be unremarkable. There is no midline shift and/or mass effect. There is no evidence for acute hemorrhage. There are n o focal areas of hypodensities. Lateral ventricles and cisterns displace normal appearance. No intr a or extra axial fluid collections were seen. The calvarium is intact with no evidence for fracture. The visualized portions of the paranasal sinuses and orbits demonstrate to be clear. IMPRESSION: No acute intracranial hemorrhage identified. Unremarkable CT scan of the head without contrast. Electronically signed by: Christ Allen MD 03/25/2023 2:55 AM CDT Due to temporary technical issues with the PACS/Fluency reporting system, reports are being signed by the in house radiologists without review as a courtesy to insure prompt reporting. The interpreting radiologist is fully responsible for the content of the report.
== END 2023-03-25 16:33 | disposition home or self-care (01) ==
LOC: ER 21:30 → ERHOLD 03-25 03:23
PROVIDERS: ADMIT Hospitalist; ATTEND Hospitalist
DX: R07.9 Chest pain, unspecified (principal); I16.0 Hypertensive urgency; R60.0 Localized edema; I50.32 Chronic diastolic (congestive) heart failure; E66.01 Morbid (severe) obesity due to excess calories; Z68.43 Body mass index [BMI] 50.0-59.9, adult; Z71.3 Dietary counseling and surveillance
CPT/HCPCS: 93005; 85025 ×2; 80048 ×2; 36415; 83735; 85610; 80061; 85379; 80076; 84484 ×3; 83880; 70450; 71275; 71045; 96374; 99285; Q9967; G0378 ×2

== ENCOUNTER 2023-12-27 04:52 | Observation (INO) | payer BC ==
[2023-12-27 05:31] LABS: Hematocrit 37.9 % (36.0-45.0); MCV 87.7 fL (80-100); MPV 6.5 fL (7.6-11.3); Platelets 286 thou/uL (152-406); Protime INR 1.01; RBC Red Blood Cell Count 4.32 M/uL (3.86-4.86)
[2023-12-27] MEDS ORDERED: NITROGLYCERIN 1 GM PKT TD ONE (05:31)
[2023-12-27] MEDS ORDERED: BUMETANIDE 1 MG/4 ML VIAL ONE (05:47)
[2023-12-27] MEDS ORDERED: ASPIRIN 81 MG CHEWABLE TABLET ONE ×2 (05:49→08:13)
[2023-12-27 06:01] LABS: Albumin 3.3 g/dL (3.4-5.0); Bilirubin Direct 0.1 mg/dL (0-0.2); Bilirubin Indirect, Calculated 0.3 mg/dL (0.2-0.8); Bilirubin Total 0.4 mg/dL (0.2-1.0); Magnesium 1.9 mg/dL (1.6-2.4); Thyroid Stimulating Hormone 0.695 uIU/mL (0.358-3.740)
--- NOTE | 2023-12-27 06:08 | EDPHYS ---
Physician Documentation [facility] Name: Jacinto Paige Age: 48 yrs Sex: Female : 1975 Arrival Date: 12/27/2023 Time: 04:52 Bed 6 Private MD: ED Physician Colby Chapman HPI: 12/27 04:59 This 48 yrs old Female presents to ER via Unassigned with complaints of Chest sp4 Pain, Shortness Of Breath. 05:31 . sp4 05:40 Patient is a very pleasant 48-year-old female with past medical history of hypertensive sp4 disorder chronic diastolic congestive heart failure and morbid obesity . patient presents with 2 weeks of worsening dyspnea on exertion associated with orthopnea. This is worsened this morning now associated with dizziness and anxiety.. Patient also reported midsternal chest pressure. . Historical: - Allergies: 05:22 Biaxin; tm6 - PMHx: 05:22 Hypertensive disorder; Congestive heart failure; tm6 - PSHx: 05:22 back surgery; left knee surgery; tm6 - Immunization history:: Client reports having NOT received the Covid vaccine. - Social history:: Smoking status: Patient denies any tobacco usage or history of. - Family history:: not pertinent. ROS: 05:40 Constitutional: Negative for fever, chills, and weight loss, positive for dyspnea on sp4 exertion, positive shortness of breath on physical exertion, positive chest pain, positive orthopnea, positive anxiety 05:40 All other systems are negative, Exam: 05:40 Constitutional: This is a well developed, well nourished patient who is awake, alert, sp4 and in no acute distress. Overweight female. Head/Face: Normocephalic, atraumatic. Eyes: Pupils equal round and reactive to light, extra-ocular motions intact. Lids and lashes normal. Conjunctiva and sclera are not injected. Cornea within normal limits. Periorbital areas with no swelling, redness, or edema. ENT: Nares patent. No nasal discharge, no septal abnormalities noted. Tympanic membranes are normal and external auditory canals are clear. Oropharynx with no redness, swelling, or masses, exudates, or evidence of obstruction, uvula midline. Mucous membranes moist. Neck: Trachea midline, no thyromegaly or masses palpated, and no cervical lymphadenopathy. Supple, full range of motion without nuchal rigidity, or vertebral point tenderness. Chest/axilla: Normal chest wall appearance and motion. Nontender with no deformity. No lesions are appreciated. Cardiovascular: Regular rate and rhythm with a normal S1 and S2. No gallops, murmurs, or rubs. Normal PMI, no JVD. No pulse deficits. Respiratory: Lungs have equal breath sounds bilaterally, clear to auscultation and percussion. No rales, rhonchi or wheezes noted. No increased work of breathing, no retractions or nasal flaring. Abdomen/GI: Soft, non-tender, with normal bowel sounds. No distension or tympany. No guarding or rebound. No evidence of tenderness throughout. Back: No spinal tenderness. No costovertebral tenderness. Skin: Warm, dry with normal turgor. Normal color with no rashes, no lesions, and no evidence of cellulitis. MS/ Extremity: Pulses equal, no cyanosis. Neurovascular intact. Full, normal range of motion. Neuro: Awake and alert, GCS 15, oriented to person, place, time, and situation. Cranial nerves II-XII grossly intact. Motor strength 5/5 in all extremities. Sensory grossly intact. Psych: Awake, alert, with orientation to person, place and time. Behavior, mood, and affect are within normal limits 05:48 ECG was reviewed by the Attending Physician. [facility] ED is EKG at 0503 sp4 Vital Signs: 05:19 BP 159 / 94; Pulse 97; Resp 18; Temp 98(O); Pulse Ox 100% on R/A; Weight 158.76 kg; tm6 Height 5 ft. 8 in. ; 05:19 Body Mass Index 53.22 (158.76 kg, 172.72 cm) tm6 MDM: 05:00 Patient medically screened. sp4 06:05 Differential diagnosis: acute myocardial infarction, acute pericarditis, anxiety, sp4 coronary artery disease chest wall pain, congestive heart failure costochondritis, gastritis. HEART Score: History: Moderately Suspicious (1), ECG: Normal (0), Age: > 45 and < 65 years (1), Risk Factors: > or = 3 Risk factors for atherosclerotic disease (2), Troponin: < or = 1 x Normal Limit (0), Total Score = 4. The patient was given aspirin in the Emergency Department. Data reviewed: vital signs, nurses notes, old medical records, lab test result(s), EKG, radiologic studies, plain films. ED course: Chest pain and dyspnea -signs of congestive heart failure with bilateral lower extremity edema and hypertension and tachycardia. Also some anxiety component. Patient declined anxiety medications. . 12/27 04:59 Order name: Basic Metabolic Panel; Complete Time: 06:04 12/27 04:59 Order name: CBC with Diff; Complete Time: 05:48 12/27 04:59 Order name: LFT's; Complete Time: 06:04 12/27 04:59 Order name: Magnesium; Complete Time: 06:04 12/27 04:59 Order name: NT PRO-BNP; Complete Time: 06:04 12/27 04:59 Order name: PT-INR; Complete Time: 05:40 12/27 04:59 Order name: Troponin HS; Complete Time: 06:04 12/27 05:00 Order name: Lipase; Complete Time: 06:04 12/27 05:00 Order name: TSH; Complete Time: 06:04 12/27 05:00 Order name: T4 Free; Complete Time: 06:04 12/27 05:00 Order name: Influenza Screen (a \T\ B); Complete Time: 05:48 12/27 05:00 Order name: COVID-19 SARS RT PCR; Complete Time: 06:04 12/27 11:02 Order name: Troponin High Sensitivity [facility] 12/27 11:02 Order name: Lipid Profile [facility] 12/27 14:45 Order name: Troponin High Sensitivity [facility] 12/27 04:59 Order name: XRAY Chest (1 view) [facility] 12/27 04:59 Order name: EKG; Complete Time: 05:00 12/27 04:59 Order name: Cardiac monitoring; Complete Time: 05:06 12/27 04:59 Order name: EKG - Nurse/Tech; Complete Time: 05:06 12/27 04:59 Order name: IV Saline Lock; Complete Time: 05:19 12/27 04:59 Order name: Labs collected and sent; Complete Time: 05:19 12/27 04:59 Order name: O2 Per Protocol; Complete Time: 05:01 sp4 12/27 04:59 Order name: O2 Sat Monitoring; Complete Time: 05:01 sp4 EC:48 Rate is 87 beats/min. Rhythm is regular, Normal Sinus Rhythm. QRS [place] is Normal. CT sp4 interval is normal. QRS interval is normal. QT interval is normal. No Q waves. T waves are Normal. No ST changes noted. Clinical impression: Normal ECG. Interpreted by me. Reviewed by me. Administered Medications: 05:40 Drug: Nitroglycerin Transdermal Ointment 2 % 1 inches Transdermal once Route: tm6 Transdermal; Site: affected area; 05:58 Drug: Bumetanide IVP 1 mg IVP once Route: IVP; Site: right antecubital; tm6 05:58 Drug: Aspirin PO Chewable Tablet 324 mg PO once; 81 mg tablets x 4 Route: PO; tm6 06:56 Drug: Potassium PO Effervescent Tablet 50 mEq PO once; dissolve in 4 ounces of water or tm6 juice Route: PO; Disposition Summary: 12/27/23 06:08 Hospitalization Ordered Notes: Hospitalization Status: Observation sp4 Provider: Vic Castro spTawana Condition: Stable sp4 Problem: new sp4 Symptoms: have improved sp4 Bed/Room Type: Standard sp4 Location: Telemetry/MedSurg (observation)(12/27/23 15:11) Room Assignment: 224(12/27/23 15:11) bd Diagnosis - Acute on chronic diastolic (congestive) heart failure sp4 - Essential (primary) hypertension sp4 - Angina pectoris, hypertensive urgency sp4 Forms: - Medication Reconciliation Form sp4 - SBAR form sp4 - Leadership Thank You Letter sp4 Signatures: Dispatcher [employer] EDMS Letty Rachel Lee, COPY CHIEF-C COPY CHIEF-Cla1 Deborah Ray, RN RN [email or web address] Colby Chapman MD MD sp4 Odette Cormier RN RN tm6 Corrections: (The following items were deleted from the chart) 07:52 06:08 Telemetry/MedSurg (observation) sp4 kb3 07:52 06:08 sp4 kb3 15:11 07:52 [facility] ER HOLD kb3 bd 15:11 07:52 ERHOLD- kb3 bd
--- NOTE | 2023-12-27 06:08 | ER ---
Nurse's Notes [facility] Name: Jacinto Paige Age: 48 yrs Sex: Female : 1975 Arrival Date: 12/27/2023 Time: 04:52 Bed 6 Private MD: Diagnosis: Acute on chronic diastolic (congestive) heart failure;Essential (primary) hypertension;Angina pectoris, hypertensive urgency Presentation: 12/27 05:19 Chief complaint: Patient states: woke up around 0315 with heart racing, shortness of tm6 breath, chest tightness, and body tingling. "I couldn't catch my breath.". Coronavirus screen: Vaccine status: Patient reports being unvaccinated. Ebola Screen: Patient negative for fever greater than or equal to 101.5 degrees Fahrenheit, and additional compatible Ebola Virus Disease symptoms Patient denies exposure to infectious person. Patient denies travel to an Ebola-affected area in the 21 days before illness onset. No symptoms or risks identified at this time. Initial Sepsis Screen: Does the patient meet any 2 criteria? No. Patient's initial sepsis screen is negative. Does the patient have a suspected source of infection? No. Patient's initial sepsis screen is negative. Risk Assessment: Do you want to hurt yourself or someone else? Patient reports no desire to harm self or others. Onset of symptoms was December 27, 2023 at 03:15. 05:19 Method Of Arrival: Ambulatory tm6 05:19 Acuity: JESSICA 3 tm6 Triage Assessment: 05:22 General: Appears uncomfortable, Behavior is calm, cooperative. Pain: Complains of pain tm6 in chest Quality of pain is described as tightness Pain began 2 hours ago. EENT: No signs and/or symptoms were reported regarding the EENT system. Neuro: Level of Consciousness is awake, alert, obeys commands, Oriented to person, place, time, situation. Cardiovascular: Reports chest pain, shortness of breath, Capillary refill < 3 seconds Patient's skin is warm and dry. Rhythm is sinus rhythm Chest pain quality is tightness. Respiratory: Airway is patent Respiratory effort is even, labored, Respiratory pattern is symmetrical, Parent/caregiver reports the patient having shortness of breath at rest on exertion. GI: Abdomen is round non-distended. : No signs and/or symptoms were reported regarding the genitourinary system. Derm: No signs and/or symptoms reported regarding the dermatologic system. Musculoskeletal: No signs and/or symptoms reported regarding the musculoskeletal system. Historical: - Allergies: 05:22 Biaxin; tm6 - PMHx: 05:22 Hypertensive disorder; Congestive heart failure; tm6 - PSHx: 05:22 back surgery; left knee surgery; tm6 - Immunization history:: Client reports having NOT received the Covid vaccine. - Social history:: Smoking status: Patient denies any tobacco usage or history of. - Family history:: not pertinent. Screenin:24 [facility] ED Fall Risk Assessment (Adult) History of falling in the last 3 months, tm6 including since admission No falls in past 3 months (0 pts) Confusion or Disorientation No (0 pts) Intoxicated or Sedated No (0 pts) Impaired Gait No (0 pts) Mobility Assist Device Used No (0 pt) Altered Elimination No (0 pt) Score/Fall Risk Level 0 - 2 = Low Risk. Abuse screen: Denies threats or abuse. Denies injuries from another. Nutritional screening: No deficits noted. Tuberculosis screening: No symptoms or risk factors identified. Assessment: 05:24 Reassessment: see triage assessment. tm6 Vital Signs: 05:19 BP 159 / 94; Pulse 97; Resp 18; Temp 98(O); Pulse Ox 100% on R/A; Weight 158.76 kg; tm6 Height 5 ft. 8 in. ; 05:19 Body Mass Index 53.22 (158.76 kg, 172.72 cm) tm6 ED Course: 04:56 Patient arrived in ED. jj6 04:59 Colby Chapman MD is Attending Physician. sp4 05:19 Influenza Screen (a \\T\\ B) Sent. tm6 05:19 COVID-19 SARS RT PCR Sent. tm6 05:21 Triage completed. tm6 05:22 Arm band placed on right wrist. tm6 05:24 No provider procedures requiring assistance completed. Inserted saline lock: 20 gauge tm6 in right antecubital area, using aseptic technique. Patient maintains SpO2 saturation greater than 95% on room air. 05:24 EKG completed in triage. Results shown to . tm6 05:24 Patient has correct armband on for positive identification. Placed in gown. Bed in low tm6 position. Call light in reach. Side rails up X 1. Provided Education on: plan of care. Client placed on continuous cardiac and pulse oximetry monitoring. NIBP monitoring applied. potline monitor on. Noise minimized. Warm blanket given. 05:52 XRAY Chest (1 view) In Process Unspecified. EDMS 06:07 Cameron Castro MD is Hospitalizing Provider. sp4 06:07 Hospitalizing Provider role handed off by Cameron Castro MD sp4 06:07 Vic Castro MD is Hospitalizing Provider. sp4 09:03 Sabiha Taylor, RN is Primary Nurse. ld1 Administered Medications: 05:40 Drug: Nitroglycerin Transdermal Ointment 2 % 1 inches Transdermal once Route: tm6 Transdermal; Site: affected area; 05:58 Drug: Bumetanide IVP 1 mg IVP once Route: IVP; Site: right antecubital; tm6 05:58 Drug: Aspirin PO Chewable Tablet 324 mg PO once; 81 mg tablets x 4 Route: PO; tm6 06:56 Drug: Potassium PO Effervescent Tablet 50 mEq PO once; dissolve in 4 ounces of water or tm6 juice Route: PO; Medication: 05:24 VIS not applicable for this client. tm6 Outcome: 06:08 Decision to Hospitalize by Provider. sp4 15:40 Patient left the ED. kc6 Signatures: Dispatcher [employer] EDDC Sabiha Taylor, RN RN ld1 Mona Alicia6 Clare Santana RN RN kc6 Colby Chapman MD MD sp4 Odette Cormier RN RN tm6
--- NOTE | 2023-12-27 06:36 | P.HP ---
Certification for Inpatient Patient admitted to: Observation With expected LOS: <2 Midnights Patient will require the following post-hospital care: None Practitioner: I am a practitioner with admitting privileges, knowledge of patient current condition, hospital course, and medical plan of care. Services: Services provided to patient in accordance with Admission requirements found in Title 42 Section 412.3 of the Code of Federal Regulations Patient History Date of Service: 12/27/23 Reason for admission: Chest pain History of Present Illness: 48-year-old female with history of chronic diastolic congestive heart failure, arthritis presents to the emergency department chief complaint of chest pain, dyspnea on exertion. She stated multiple episodes over the course of the last few days with lightheadedness/shortness of breath especially with changes in position/exertion. Today following 1 of these episodes she developed some left- sided chest pain described as pressure radiating to the left arm, she also noted her blood pressure was elevated at home 160s over 100. She was brought to the emergency department for evaluation. Her labs were significant for initial high-sensitivity troponin of 11, BNP 141 potassium 3.0 EKG without STEMI criteria. Patient reports she had a stress test and echocardiogram performed in late 2021, had a heart catheterization approximately 15 years ago without intervention. ED provider wishes to admit and observation for ACS rule out, event patient does have some lower extremity edema worse than her baseline, also greater on the right which is normal for her. Suspect some degree of acute on chronic diastolic congestive heart failure. She was given additional dose of IV Bumex in ED. Allergies clarithromycin [From Biaxin] Allergy (Verified 03/25/23 04:39) Itching/Hives/Rash - Past Medical/Surgical History -: Chronic diastolic congestive heart failure -: Hypertension -: arthritis Psychosocial/ Personal History: Patient lives at home with family - Social History Smoking Status: Former smoker Alcohol use: No CD- Drugs: No Caffeine use: Yes Place of Residence: Home Review of Systems 10-point ROS is otherwise unremarkable Respiratory: Shortness of Breath Cardiovascular: Chest Pain Physical Examination - Physical Exam General: Alert, In no apparent distress, Oriented x3 HEENT: Atraumatic, PERRLA, EOMI Neck: Supple, 2+ carotid pulse no bruit Respiratory: Clear to auscultation bilaterally, Normal air movement Cardiovascular: Regular rate/rhythm, Normal S1 S2 Gastrointestinal: Normal bowel sounds Musculoskeletal: No tenderness Integumentary: No rashes Neurological: Normal speech, Normal strength at 5/5 x4 extr, Normal tone - Studies Laboratory Data (last 24 hrs) 12/27/23 12/27/23 12/27/23 05:10 05:10 05:10 WBC 6.00 Hgb 13.3 Hct 37.9 Plt Count 286 PT 11.1 INR 1.01 Sodium 138 Potassium 3.0 L BUN 13 Creatinine 0.89 Glucose 103 Magnesium 1.9 Total Bilirubin 0.4 AST 20 ALT 44 Alkaline Phosphatase 74 Lipase 43 Microbiology Data (last 24 hrs): 12/27/23 05:12 Nasopharnyx Influenza Type A Antigen Screen - Final 12/27/23 05:12 Nasopharnyx Influenza Type B Antigen Screen - Final Assessment and Plan - Plan Assessment: Chest pain rule out ACS Acute on chronic diastolic congestive heart failure Hypokalemia Arthritis Plan: Chest pain rule out ACS Acute on chronic diastolic congestive heart failure Trend troponins, monitor on telemetry, echocardiogram ordered Cardiology consult in place Reports worsening dyspnea on exertion the past few weeks but especially worse this morning Given dose of IV Bumex in ED, continue IV Bumex. No recent changes in diuretics, does report some increasing swelling lower extremities greater on the right which is normal for her Last echo/stress test late 2021, last heart cath approximate 15 years ago without invention Hypokalemia Replacement ordered Arthritis Continue home medication DVT PPX: Lovenox Code status: Full Discharge Plan: Home Plan to discharge in: 24 Hours - Advance Directives Does patient have a Living Will: No Does patient have a Durable POA for Healthcare: No - Code Status/Comfort Care Code Status Assessed: Yes (Full code) Critical Care: No Time Spent Managing Pts Care (In Minutes): 70
[2023-12-27] MEDS ORDERED: POTASSIUM 25 MEQ EFFERV TAB ONE (06:53)
[2023-12-27 08:04] VITALS: BMI 52.9
[2023-12-27] MEDS ORDERED: ENOXAPARIN 40 MG/0.4 ML SQ ONE (08:13)
[2023-12-27] MEDS: ASPIRIN EC 81 MG TAB PO SCH (08:19)
[2023-12-27] MEDS: ENOXAPARIN 40 MG/0.4 ML SQ SCH (08:19)
--- NOTE | 2023-12-27 10:58 | RAD REPORT ---
EXAM DESCRIPTION: RAD - Chest Single View - 12/27/2023 5:50 am CLINICAL HISTORY: CHEST PAIN COMPARISON: None TECHNIQUE: Single AP view of the chest. FINDINGS: Lung volumes adequate. Cardiac silhouette is normal in size. No pneumothorax. No large pleural effusion. No focal consolidation. No acute bony finding. IMPRESSION: No evidence of acute cardiopulmonary disease. Electronically signed by: iNshi Parada MD 12/27/2023 06:10 AM OPERATIONS COORDINATOR Due to temporary technical issues with the PACS/Fluency reporting system, reports are being signed by the in house radiologist without review as a courtesy to ensure prompt reporting. The interpreting r adiologist is fully responsible for the content of the report.
[2023-12-27 11:02] LABS: Troponin High Sensitivity 8.3 pg/mL (<58.9)
[2023-12-27] MEDS: BUMETANIDE 1 MG/4 ML VIAL IV SCH (18:14)
[2023-12-27] MEDS: ACETAMINOPHEN 325 MG TABLET PO PRN (21:13)
[2023-12-28 05:16] VITALS: O2SAT 94
[2023-12-28 06:44] LABS: Absolute Lymphocytes (CBC) 1.7 K/uL (0.7-4.9); Hematocrit 35.9 % (36.0-45.0); Lymphocytes % 34.5 % (15.3-44.8); MCV 88.3 fL (80-100); MPV 6.6 fL (7.6-11.3); Platelets 276 thou/uL (152-406); RBC Red Blood Cell Count 4.06 M/uL (3.86-4.86)
[2023-12-28 06:58] LABS: Bilirubin Total 0.5 mg/dL (0.2-1.0); Potassium 3.4 mEq/L (3.5-5.1); Protein, Total 6.3 g/dL (6.4-8.2)
[2023-12-28] MEDS: BUMETANIDE 1 MG/4 ML VIAL IV SCH (10:54)
[2023-12-28] MEDS: ASPIRIN EC 81 MG TAB PO SCH (10:54)
[2023-12-28] MEDS: ENOXAPARIN 40 MG/0.4 ML SQ SCH (10:54)
[2023-12-28] MEDS: ACETAMINOPHEN 325 MG TABLET PO PRN (11:02)
--- NOTE | 2023-12-28 11:22 | P.PN ---
Date of Service: 12/28/23 Subjective: Denies chest pain overnight Still with some RODRIGUEZ, dizziness ROS: 10 point ROS as noted above, otherwise negative Physical exam GEN: Alert, oriented, NAD HEENT: Normal conjunctiva, sclera anicteric CV: Regular rate and rhythm, 1+ pitting edema HUGO LE Pulm: Nonlabored respirations on room air ABD: Soft, nontender, nondistended MSK: No joint tenderness Integumentary: No rashes Neuro: Normal speech, normal affect Vitals reviewed Problem List Chest pain rule out ACS Acute on chronic diastolic congestive heart failure Hypokalemia Arthritis Plan: Chest pain rule out ACS Acute on chronic diastolic congestive heart failure Troponins trended flat, echocardiogram performedpending results Cardiology recommends further diuresis, outpatient stress test Reports worsening dyspnea on exertion the past few weeks continue IV Bumex. No recent changes in diuretics, does report some increasing swelling lower extremities greater on the right which is normal for her Last echo/stress test late 2021, last heart cath approximate 15 years ago without invention Hypokalemia Replacement ordered Arthritis Continue home medication DVT PPX: Lovenox Code status: Full Discharge Plan: Home Plan to discharge in: 24 Hours Time Spent Managing Pts Care (In Minutes): 35
[2023-12-28] MEDS ORDERED: MELOXICAM 7.5 MG TAB PO SCH (13:00)
[2023-12-28] MEDS ORDERED: POTASSIUM 25 MEQ EFFERV TAB PO ONE (13:21)
--- NOTE | 2023-12-28 13:26 | EKG ---
Test Date: 2023-12-27 Test Time: 07:38:34 Marketing Proposal Coordinator: Rusty HENRIQUEZ MEASUREMENT RESULTS: Intervals: Rate: 89 OK: 186 QRSD: 84 QT: 364 QTc: 442 [place]: P: 71 OK: 186 QRS: 68 T: 64 INTERPRETIVE STATEMENTS: Normal sinus rhythm Normal ECG Compared to ECG 12/27/2023 05:03:41 No significant changes Electronically Signed On 12-28-23 13:22:41 [employer]ESSER [employer] SHAP[employer] K[employer]ITTED GOODS by Jesus Pimentel
--- NOTE | 2023-12-28 13:27 | EKG ---
Test Date: 2023-12-27 Test Time: 05:03:41 Fly Winder: GIANNA MEASUREMENT RESULTS: Intervals: Rate: 87 MN: 180 QRSD: 92 QT: 368 QTc: 442 [place]: P: 72 MN: 180 QRS: 66 T: 56 INTERPRETIVE STATEMENTS: Normal sinus rhythm Normal ECG Compared to ECG 03/24/2023 21:35:36 No significant changes Electronically Signed On 12-28-23 13:22:50 FIBER GLASS WORKER by Jesus Pimentel
--- NOTE | 2023-12-28 14:15 | ECHO ---
HEIGHT: 5 ft 8 in WEIGHT: 348 lb 5.286 oz DATE OF STUDY: 12/28/[address]: Chris Spears NP 2-DIMENSIONAL: YES M.MODE: YES DOPPLER: YES COLOR FLOW: YES TDS: YES PORTABLE: YES DEFINITY: BUBBLE STUDY: DIAGNOSIS: CHEST PAIN, CONGESTIVE HEART FAILURE EXACERBATION CARDIAC HISTORY: CATHERIZATION: NO SURGERY: NO PROSTHETIC VALVE: NO PACEMAKER: NO MEASUREMENTS (cm) DIASTOLIC (NORMALS) SYSTOLIC (NORMALS) IVSd 1.1 (0.6-1.2) LA Diam 2.4 (1.9-4.0) LVEF 56% LVIDd 3.9 (3.5-5.7) LVIDs 2.8 (2.0-3.5) %FS 29% LVPWd 1.2 (0.6-1.2) Ao Diam 2.6 (2.0-3.7) 2 DIMENSIONAL ASSESSMENT: RIGHT ATRIUM: NORMAL LEFT ATRIUM: NORMAL RIGHT VENTRICLE: NORMAL LEFT VENTRICLE: NORMAL TRICUSPID VALVE: NORMAL MITRAL VALVE: NORMAL PULMONIC VALVE: NORMAL AORTIC VALVE: NORMAL PERICARDIAL EFFUSION: NONE AORTIC ROOT: NORMAL LEFT VENTRICULAR WALL MOTION: NORMAL DOPPLER/COLOR FLOW: NORMAL COMMENTS: 1. NORMAL LEFT VENTRICULAR EJECTION FRACTION 55-60% 2. NORMAL WALL MOTION 3. POOR WINDOWS TECHNOLOGIST: ERIN DAVIS
--- NOTE | 2023-12-28 16:44 | P.DS ---
Admission Date: 12/27/23 Discharge Date: 12/28/23 Disposition: ROUTINE DISCHARGE Discharge Condition: GOOD Reason for Admission: Chest pain Consultations: cardiology- Dr. Pimentel Brief History of Present Illness: 48-year-old female with history of chronic diastolic congestive heart failure, arthritis presents to the emergency department chief complaint of chest pain, dyspnea on exertion. She stated multiple episodes over the course of the last few days with lightheadedness/shortness of breath especially with changes in position/exertion. Today following 1 of these episodes she developed some left-sided chest pain described as pressure radiating to the left arm, she also noted her blood pressure was elevated at home 160s over 100. She was brought to the emergency department for evaluation. Her labs were significant for initial high-sensitivity troponin of 11, BNP 141 potassium 3.0 EKG without STEMI criteria. Patient reports she had a stress test and echocardiogram performed in late 2021, had a heart catheterization approximately 15 years ago without intervention. ED provider wishes to admit and observation for ACS rule out, event patient does have some lower extremity edema worse than her baseline, also greater on the right which is normal for her. Suspect some degree of acute on chronic diastolic congestive heart failure. She was given additional dose of IV Bumex in ED. Hospital Course: Problem List Chest pain rule out ACS Acute on chronic diastolic congestive heart failure Hypokalemia Arthritis Patient was admitted to the hospital under inpatient for ACS rule out/CHF exacerbation. Troponins were negative and trended flat, echocardiogram was performed and showed normal left ventricular ejection fraction, normal wall motion. She was diuresed with IV Bumex during hospitalization and had improvement in her symptoms. Cardiology recommends further evaluation with outpatient stress test. Patient is to follow-up with primary care doctor in 1 week Follow-up with cardiology in 1 to 2 weeks Vital Signs/Physical Exam: Temp Pulse Resp BP Pulse Ox 97.9 F 89 18 128/68 98 12/28/23 16:00 12/28/23 16:12/28/23 16:12/28/23 16:12/28/23 16:00 General: Alert, In no apparent distress, Oriented x3 HEENT: Atraumatic, PERRLA Neck: Supple, JVD not distended Respiratory: Clear to auscultation bilaterally, Normal air movement Cardiovascular: Regular rate/rhythm, Normal S1 S2 Gastrointestinal: Normal bowel sounds Musculoskeletal: No tenderness Integumentary: No rashes Neurological: Normal speech, Normal affect Laboratory Data at Discharge: WBC 5.00 thou/uL (4.3-10.9) 12/28/23 05:50 Hgb 12.5 g/dL (12.0-15.0) 12/28/23 05:50 Hct 35.9 % (36.0-45.0) L 12/28/23 05:50 Plt Count 276 thou/uL (152-406) 12/28/23 05:50 PT 11.1 SECONDS (9.5-12.5) 12/27/23 05:10 INR 1.01 12/27/23 05:10 Sodium 140 mEq/L (136-145) 12/28/23 05:50 Potassium 3.4 mEq/L (3.5-5.1) L D 12/28/23 05:50 BUN 15 mg/dL (7-18) 12/28/23 05:50 Creatinine 0.75 mg/dL (0.55-1.02) 12/28/23 05:50 Glucose 95 mg/dL (74-106) 12/28/23 05:50 Magnesium 1.9 mg/dL (1.6-2.4) 12/27/23 05:10 Total Bilirubin 0.5 mg/dL (0.2-1.0) 12/28/23 05:50 AST 16 U/L (15-37) 12/28/23 05:50 ALT 39 U/L (13-56) 12/28/23 05:50 Alkaline Phosphatase 68 U/L (45-117) 12/28/23 05:50 Triglycerides 122 mg/dL (<150) 12/27/23 09:26 Cholesterol 201 mg/dL (<200) H 12/27/23 09:26 HDL Cholesterol 46 mg/dL (40-60) 12/27/23 09:26 Cholesterol/HDL Ratio 4.37 12/27/23 09:26 Lipase 43 U/L (13-75) 12/27/23 05:10 Home Medications: Bumetanide [Bumex*] 1 mg PO BID 12/27/23 Meloxicam [Mobic] 15 mg PO DAILY 12/27/23 Physician Discharge Instructions: Patient was admitted to the hospital under inpatient for ACS rule out/CHF exacerbation. Troponins were negative and trended flat, echocardiogram was performed and showed normal left ventricular ejection fraction, normal wall motion. She was diuresed with IV Bumex during hospitalization and had improvement in her symptoms. Cardiology recommends further evaluation with outpatient stress test. Patient is to follow-up with primary care doctor in 1 week Follow-up with cardiology in 1 to 2 weeks Diet: AHA Activity: Ad nicolle Followup: Jesus Pimentel MD [ACTIVE - CAN ADMIT] - 1-2 Weeks Amos Nieto FNP [Primary Care Provider] - 1 Week Time spent managing pt's care (in minutes): 30
[2023-12-28 16:48] VITALS: BP 128/68; TEMP 97.9
--- NOTE | 2023-12-28 17:27 | CON ---
Date of Consultation: 12/27/2023 Reason For Consultation: Chest pain. History Of Present Illness: This is a 48-year-old female with history of diastolic heart failure, ob esity, hypertension, arthritis, presented to the emergency room with chest pain, left-sided, along wi th dyspnea on exertion and there was some dizziness. Chest pain is sharp, short lived, and no radiat ion. On my evaluation, she was chest pain free. Past Medical History: As outlined above in the HPI. Medications: Refer to reconciliation sheet for detailed list. Allergies: CLARITHROMYCIN. Family History: No premature coronary artery disease or cancer. Social History: She does not smoke or drink. Does not use any drugs. Review of Systems: All systems reviewed and they were negative except as mentioned in the HPI. Physical Examination: Vital Signs: Reviewed. Head and Neck: Pupils are equal, reactive to light. Intact eye movements. No JVD. No cervical lym phadenopathy. Neck is supple. Thyroid is not enlarged. Lungs: Clear to auscultation bilaterally. No rhonchi, wheezing, or crackles. No accessory muscle u se. Heart: Regular rate and rhythm. No extra sounds. Abdomen: Soft, nontender. Bowel sounds positive. No organomegaly. No masses or hernia. No rigidi ty or rebound. Extremities: No clubbing or cyanosis. Positive edema. Neurologic: Alert, awake, oriented x3. No acute focal deficits appreciated. Lymph Nodes: No cervical or axillary lymphadenopathy. Investigations: BUN 13, creatinine troponin x2 are negative. Assessment And Recommendations: 1.Chest pain, it is atypical. Cardiac enzymes are negative. Keep trending troponin for 3 sets and plan accordingly. 2.Acute on chronic diastolic heart failure exacerbation, on IV diuretics, doing well. Continue curr ent management. 3.Hypertension. Blood pressure is controlled. Continue current therapy. SR/MODL Voice ID: [id number] Report ID: [id number]
--- NOTE | 2023-12-28 20:02 | PN ---
Date of Progress Note: 12/28/2023 Subjective: Seen by bedside. Doing clinically well. No further chest pain. She is walking around. No chest pain. No shortness of breath. Review of Systems: No chest pain, shortness of breath, orthopnea, or cough. No nausea, vomiting, or diarrhea. All othe r systems were reviewed, they were negative. Objective: Vital Signs: Reviewed. Head and Neck: Pupils are equal, reactive to light. Intact eye movements. No JVD. No cervical lym phadenopathy. Neck is supple. Thyroid is not enlarged. Lungs: Clear to auscultation bilaterally. No rhonchi, wheezing, or crackles. No accessory muscle u se. Heart: Regular rate and rhythm. No extra sounds. Abdomen: Soft, nontender. Bowel sounds positive. No organomegaly. No masses or hernia. No rigidi ty or rebound. Extremities: No edema, clubbing, or cyanosis. Intact pulses. Skin: No rash or nodule. Neurologic: Alert, awake, oriented x3. No acute focal deficits appreciated. Lymph Nodes: No cervical or axillary lymphadenopathy. Investigations: Labs were reviewed. Assessment And Recommendations: 1.Chest pain, it is atypical. Cardiac enzymes are negative and no further episodes of pain. She ca n be released. Follow up as an outpatient for a stress test. 2.Hypertension. Blood pressure is controlled. 3.Diastolic heart failure, appears to be euvolemic now. Continue on oral diuretics and follow up with me in the office in 2 weeks postdischarge. SR/MODL Voice ID: [id number] Report ID: [id number]
[2023-12-29] MEDS ORDERED: HOME MED 1 EA UNK (Meloxicam [Mobic] 15 MG Tablet) PO SCH (09:00)
== END 2023-12-28 17:10 | disposition home or self-care (01) ==
LOC: ER 04:52 → ERHOLD 06:28 → 2ND 15:25
PROVIDERS: ADMIT Hospitalist; ATTEND Hospitalist
DX: I50.33 Acute on chronic diastolic (congestive) heart failure (principal); R07.9 Chest pain, unspecified; M19.90 Unspecified osteoarthritis, unspecified site; I10 Essential (primary) hypertension; Z11.52 Encounter for screening for COVID-19
CPT/HCPCS: 93005 ×2; 93306; 85025 ×2; 80048; 36415 ×2; 83735; 85610; 80061; 80076; 84443; 84484 ×3; 84439; 83690; 80053; 83880; 87635; 87804 ×2; 71045; J1650 ×2; G0378

== ENCOUNTER 2024-11-01 06:36 | Observation (INO) | payer BC ==
[2024-11-01 07:00] LABS: Absolute Eosinophils 0.1 K/uL (0-0.5); Absolute Lymphocytes (CBC) 1.4 K/uL (0.7-4.9); Absolute Monocytes 0.4 K/uL (0.1-1.3); Absolute Neutrophil 3.4 K/uL (1.8-8.0); Basophils % 0.7 % (0-1.3); Eosinophils % 2.1 % (0-4.4); Hematocrit 39.4 % (36.0-45.0); Hemoglobin 13.4 g/dL (12.0-15.0); Lymphocytes % 26.4 % (15.3-44.8); MCH 30.3 pg (27.0-35.0); MCHC 33.9 g/dL (32.0-36.0); MCV 89.4 fL (80-100); MPV 6.5 fL (7.6-11.3); Monocytes % 7.2 % (3.3-12.3); Neutrophils % 63.6 % (41.7-73.7); Nucleated Red Blood Cells % 0.1 % (0-0); Platelets 304 thou/uL (152-406); RBC Red Blood Cell Count 4.41 M/uL (3.86-4.86)
[2024-11-01 07:01] LABS: PT Prothrombin Time 11.7 SECONDS (9.4-12.5); Protime INR 1.05
[2024-11-01 07:22] LABS: ALT/SGPT 40 U/L (13-56); AST/SGOT 25 U/L (15-37); Albumin 3.1 g/dL (3.4-5.0); Albumin/Globulin Ratio 0.9 (1.1-1.8); Alkaline Phosphatase 70 U/L (45-117); Anion Gap 7.4 mEq/L (5.0-15.0); BUN Blood Urea Nitrogen 12 mg/dL (7-18); Bicarbonate 29 mEq/L (21-32); Bilirubin Total 0.5 mg/dL (0.2-1.0); Globulin 3.5 g/dL (2.3-3.5); Glomerular Filtration Rate 92 ml/min (=/>90); Glucose Level 112 mg/dL (74-106); NT PRO-BNP 254 pg/mL (<125); Potassium 3.4 mEq/L (3.5-5.1); Protein, Total 6.6 g/dL (6.4-8.2); Sodium Level 141 mEq/L (136-145); Troponin High Sensitivity 10.7 pg/mL (<58.9)
[2024-11-01 07:24] LABS: Bilirubin Direct < 0.2 mg/dL (0-0.2); Bilirubin Indirect, Calculated 0.3 mg/dL (0.2-0.8)
[2024-11-01] MEDS ORDERED: FAMOTIDINE 20 MG/2 ML VIAL IV ONE (07:34)
[2024-11-01] MEDS ORDERED: NA CHLORIDE 0.9% 500 ML ONE (07:34)
--- NOTE | 2024-11-01 08:01 | ER ---
Nurse's Notes [facility] Name: Jacinto Piage Age: 49 yrs Sex: Female : 1975 Arrival Date: 11/01/2024 Time: 06:36 Bed 5 Private MD: Diagnosis: Chest pain, unspecified;Obesity, unspecified;Dizziness and giddiness;Essential (primary) hypertension Presentation: 11/01 06:36 Chief complaint: Patient states: c/o htn, dizziness, chest tightness, indigestion, and al5 nausea since 0500 this morning. Coronavirus screen: At this time, the client does not indicate any symptoms associated with coronavirus-19. Ebola Screen: No symptoms or risks identified at this time. Initial Sepsis Screen: Does the patient meet any 2 criteria? No. Patient's initial sepsis screen is negative. Does the patient have a suspected source of infection? No. Patient's initial sepsis screen is negative. Risk Assessment: Do you want to hurt yourself or someone else?. Onset of symptoms was November 01, 2024. 06:36 Method Of Arrival: EMS: [facility] al5 06:36 Acuity: JESSICA 2 al5 06:36 Care prior to arrival: Medication(s) given: ASA, 81 mg, x 4. al5 Triage Assessment: 06:36 General: Appears in no apparent distress. uncomfortable, Behavior is calm, cooperative. al5 Pain: Complains of pain in chest. EENT: No signs and/or symptoms were reported regarding the EENT system. Neuro: Level of Consciousness is awake, alert, obeys commands, Oriented to person, place, time, situation. Cardiovascular: Capillary refill < 3 seconds Patient's skin is warm and dry. Rhythm is sinus rhythm. Respiratory: Airway is patent Respiratory effort is even, unlabored, Respiratory pattern is regular, symmetrical. GI: Abdomen is non-distended, obese, Reports indigestion, nausea. : No signs and/or symptoms were reported regarding the genitourinary system. Derm: Skin is intact, is healthy with good turgor, Skin is pink, warm \T\ dry. normal. Musculoskeletal: No signs and/or symptoms reported regarding the musculoskeletal system. Historical: - Allergies: 06:36 Biaxin; al5 - PMHx: 06:36 Congestive heart failure; Hypertensive disorder; al5 - PSHx: 06:36 left knee surgery; back surgery; al5 - Immunization history:: Adult Immunizations up to date. - Infectious Disease History:: Denies. - Family history:: not pertinent. - Social history:: Smoking status: Patient denies any tobacco usage or history of. Screenin:58 [facility] ED Fall Risk Assessment (Adult) History of falling in the last 3 months, al5 including since admission No falls in past 3 months (0 pts) Confusion or Disorientation No (0 pts) Intoxicated or Sedated No (0 pts) Impaired Gait No (0 pts) Mobility Assist Device Used No (0 pt) Altered Elimination No (0 pt) Score/Fall Risk Level 0 - 2 = Low Risk Oriented to surroundings, Maintained a safe environment, Hourly rounding (assess needs \T\ fall precautionary measures) done. Abuse screen: Denies threats or abuse. Denies injuries from another. Nutritional screening: No deficits noted. Tuberculosis screening: No symptoms or risk factors identified. Assessment: 06:58 Reassessment: see triage assessment. al5 06:59 Pain: Pain radiates to back Pain began 2 hours ago. al5 07:15 General: Appears in no apparent distress. Behavior is calm, cooperative. Pain: iw Complains of pain in mid-sternal area Pain radiates to left arm Pain currently is 4 out of 10 on a pain scale. Quality of pain is described as heavy, pressure, tightness Pain began Is. Neuro: Level of Consciousness is awake, alert, obeys commands, Oriented to person, place, time, situation, Moves all extremities. Full function. Neuro: Reports dizziness. Cardiovascular: Patient's skin is warm and dry. Cardiovascular: Reports chest pain. Respiratory: Respiratory effort is even, unlabored, Respiratory pattern is regular, symmetrical. GI: Abdomen is non-distended, obese. Derm: Skin is intact, is healthy with good turgor. Musculoskeletal: Range of motion: intact in all extremities. 08:06 Reassessment: Patient appears in no apparent distress at this time. Patient and/or iw family updated on plan of care and expected duration. Pain level reassessed. Patient is alert, oriented x 3, equal unlabored respirations, skin warm/dry/pink. pt updated on POC , pt still feels intermittent dizziness. 09:46 Reassessment: Patient appears in no apparent distress at this time. Patient and/or hb family updated on plan of care and expected duration. Pain level reassessed. Patient is alert, oriented x 3, equal unlabored respirations, skin warm/dry/pink. 10:04 Reassessment: Patient and/or family updated on plan of care and expected duration. Pain tm6 level reassessed. Patient is alert, oriented x 3, equal unlabored respirations, skin warm/dry/pink. Vital Signs: 06:36 BP 159 / 102; Pulse 76; Resp 18; Temp 98.1; Pulse Ox 99% on R/A; Weight 165.11 kg; al5 Height 5 ft. 9 in. ; 07:16 BP 176 / 89; Pulse 76; Resp 16; Pulse Ox 97% on R/A; Pain 4/10; iw 08:30 BP 170 / 97; Pulse 66; Resp 16; Pulse Ox 98% on R/A; hb 10:04 BP 172 / 97; Pulse 72; Resp 17; Temp 98.1; Pulse Ox 98% on R/A; MAP 119 mmHg; Pain 0/10;tm6 06:36 Body Mass Index 53.75 (165.11 kg, 175.26 cm) al5 07:16 Pain Scale: Adult iw 10:04 Pain Scale: Adult tm6 Christo Coma Score: 06:49 Eye Response: spontaneous(4). Motor Response: obeys commands(6). Verbal Response: sp4 oriented(5). Total: 15. ED Course: 06:36 Arm band placed on right wrist. Patient placed in the treatment room, on a stretcher. al5 06:37 Patient arrived in ED. jj6 06:38 Colby Chapman MD is Attending Physician. sp4 06:53 Patrizia Madison RN is Primary Nurse. al5 06:55 Triage completed. al5 06:56 XRAY Chest (1 view) In Process Unspecified. EDMS 06:58 Patient has correct armband on for positive identification. Bed in low position. Call al5 light in reach. Side rails up X 1. Provided Education on: plan of care. Client placed on continuous cardiac and pulse oximetry monitoring. NIBP monitoring applied. site monitor on. 06:58 No provider procedures requiring assistance completed. Patient maintains SpO2 al5 saturation greater than 95% on room air. 06:59 Basic Metabolic Panel Sent. al5 06:59 CBC with Diff Sent. al5 06:59 LFT's Sent. al5 06:59 Magnesium Sent. al5 06:59 Troponin HS Sent. al5 06:59 Influenza Screen (a \T\ B) Sent. al5 07:00 Inserted saline lock: 20 gauge in right antecubital area, using aseptic technique. al5 Blood collected. Flushed with 10 mL NS. 07:18 Attending Physician role handed off by Colby Chapman MD theodore 07:18 Bob Law MD is Attending Physician. theodore 07:59 Vic Castro MD is Hospitalizing Provider. theodore 08:37 US Extremity Venous W Compression Jaison In Process Unspecified. EDMS 09:27 Chest For PE Angio CT In Process Unspecified. EDMS 10:06 Patient admitted, IV remains in place. tm6 Administered Medications: 07:25 CANCELLED (given by EMS ): aspirinchewable tablet 324 mg PO once; 81 mg tablets x 4 iw 07:40 Drug: NS 0.9% IV 500 ml 500 ml IV at 1 bolus once; to be given as a bolus over 30 iw minutes Volume: 500 ml; Route: IV; Rate: 1 bolus; Site: right antecubital; 10:00 Follow up: Response: No adverse reaction; IV Status: Completed infusion; IV Intake: tm6 500ml 07:40 Drug: Famotidine IVP 20 mg IVP once; dilute with 10 mL 0.9% NaCl; give over 2 minutes iw Route: IVP; Site: right antecubital; 10:06 Follow up: Response: No adverse reaction tm6 Medication: 06:58 VIS not applicable for this client. al5 Intake: 10:00 IV: 500ml; Total: 500ml. tm6 Outcome: 08:00 Decision to Hospitalize by Provider. [facility] 10:05 Admitted to Med/surg accompanied by tech, via wheelchair, with chart, tm6 10:05 Condition: stable 10:05 Instructed on the need for admit, Demonstrated understanding of instructions, 10:06 Patient left the ED. tm6 Signatures: Dispatcher [employer] EDKS Bob Law MD MD cha Williams, Irene, RN RN Shefali Canchola RN RN hb Jeffries, Jennifer jj6 Colby Chapman MD MD sp4 Odette Cormier RN RN tm6 Patrizia Madison RN RN al5 Corrections: (The following items were deleted from the chart) 06:56 06:55 Arm band placed on right wrist. Patient placed in the treatment room, on a al5 stretcher, al5 06:53 Chief complaint: Patient states: c/o htn, dizziness, chest tightness, al5 indigestion, and nausea since 0500 this morning. al 06:53 Coronavirus screen: At this time, the client does not indicate any symptoms al5 associated with coronavirus-19. al5 06:53 Ebola Screen: No symptoms or risks identified at this time. al5 06:53 Initial Sepsis Screen: Does the patient meet any 2 criteria? No. Patient's al5 initial sepsis screen is negative. Does the patient have a suspected source of infection? No. Patient's initial sepsis screen is negative. al 06:53 Risk Assessment: Do you want to hurt yourself or someone else? al5 06:53 Onset of symptoms was November 01, 2024 al5 06:53 Method Of Arrival: EMS: [facility] 06:53 BP 159 / 102; Pulse 76bpm; Resp 18bpm; Pulse Ox 99% RA; Temp 98.1F; 165.11 kg; al5 Height 5 ft. 9 in.; BMI: 53.7; 06:53 Acuity: JESSICA 2 al5 5
--- NOTE | 2024-11-01 08:01 | EDPHYS ---
Physician Documentation [facility] Name: Jacinto Paige Age: 49 yrs Sex: Female : 1975 Arrival Date: 11/01/2024 Time: 06:36 Bed 5 Private MD: ED Physician Bob Law HPI: 11/01 06:40 This 49 yrs old Female presents to ER via Unassigned with complaints of Chest sp4 Pain, Dizziness. 06:49 49-year-old female presents with acute onset of chest discomfort, shortness of breath, sp4 and elevated blood pressure. History of congestive heart failure patient takes 1 mg Bumex twice a day. Patient was given aspirin 325 mg by EMS. Historical: - Allergies: 06:36 Biaxin; al5 - PMHx: 06:36 Congestive heart failure; Hypertensive disorder; al5 - PSHx: 06:36 left knee surgery; back surgery; al5 - Immunization history:: Adult Immunizations up to date. - Infectious Disease History:: Denies. - Family history:: not pertinent. - Social history:: Smoking status: Patient denies any tobacco usage or history of. ROS: 06:49 Constitutional: Negative for fever, chills, and weight loss, positive chest pressure, sp4 positive shortness of breath, positive elevated blood pressure 06:49 All other systems are negative, Exam: 06:49 Constitutional: This is a well developed, well nourished patient who is awake, alert, sp4 and in no acute distress. Head/Face: Normocephalic, atraumatic. Eyes: Pupils equal round and reactive to light, extra-ocular motions intact. Lids and lashes normal. Conjunctiva and sclera are not injected. Cornea within normal limits. Periorbital areas with no swelling, redness, or edema. ENT: Nares patent. No nasal discharge, no septal abnormalities noted. Tympanic membranes are normal and external auditory canals are clear. Oropharynx with no redness, swelling, or masses, exudates, or evidence of obstruction, uvula midline. Mucous membranes moist. Neck: Trachea midline, no thyromegaly or masses palpated, and no cervical lymphadenopathy. Supple, full range of motion without nuchal rigidity, or vertebral point tenderness. Chest/axilla: Normal chest wall appearance and motion. Nontender with no deformity. No lesions are appreciated. Cardiovascular: Regular rate and rhythm with a normal S1 and S2. No gallops, murmurs, or rubs. Normal PMI, no JVD. No pulse deficits. Respiratory: Lungs have equal breath sounds bilaterally, clear to auscultation and percussion. No rales, rhonchi or wheezes noted. No increased work of breathing, no retractions or nasal flaring. Abdomen/GI: Soft, with normal bowel sounds. No distension or tympany. No guarding or rebound. No evidence of tenderness throughout. Back: No spinal tenderness. No costovertebral tenderness. Skin: Warm, dry with normal turgor. Normal color with no rashes, no lesions, and no evidence of cellulitis. MS/ Extremity: Pulses equal, no cyanosis. Neurovascular intact. Full, normal range of motion. Neuro: Awake and alert, GCS 15, oriented to person, place, time, and situation. Cranial nerves II-XII grossly intact. Motor strength 5/5 in all extremities. Sensory grossly intact. Psych: Awake, alert, with orientation to person, place and time. Behavior, mood, and affect are within normal limits 06:54 ECG was reviewed by the Attending Physician. EKG at 0 651 normal sinus rhythm rate 74 sp4 normal EKG Vital Signs: 06:36 BP 159 / 102; Pulse 76; Resp 18; Temp 98.1; Pulse Ox 99% on R/A; Weight 165.11 kg; al5 Height 5 ft. 9 in. ; 07:16 BP 176 / 89; Pulse 76; Resp 16; Pulse Ox 97% on R/A; Pain 4/10; iw 08:30 BP 170 / 97; Pulse 66; Resp 16; Pulse Ox 98% on R/A; hb 10:04 BP 172 / 97; Pulse 72; Resp 17; Temp 98.1; Pulse Ox 98% on R/A; MAP 119 mmHg; Pain 0/10;tm6 06:36 Body Mass Index 53.75 (165.11 kg, 175.26 cm) al5 07:16 Pain Scale: Adult iw 10:04 Pain Scale: Adult tm6 [place] Coma Score: 06:49 Eye Response: spontaneous(4). Motor Response: obeys commands(6). Verbal Response: sp4 oriented(5). Total: 15. MDM: 06:38 Medical Screening Exam initiated sp4 06:52 Differential diagnosis: acute pericarditis, anxiety, chest wall pain, cholecystitis, sp4 Cholelithiasis costochondritis, esophagitis. HEART Score: History: Slightly Suspicious (0), ECG: Normal (0), Age: > 45 and < 65 years (1), Risk Factors: 1 or 2 risk factors (1), Troponin: < or = 1 x Normal Limit (0), Total Score = 2. Data reviewed: vital signs, nurses notes, lab test result(s), radiologic studies, plain films. 06:55 Transition of care: After a detail discussion of the patient's case, care is sp4 transferred to Nicolle Lunsford MD. 11/01 06:38 Order name: Basic Metabolic Panel; Complete Time: 07:57 sp4 11/01 06:38 Order name: CBC with Diff; Complete Time: 07:57 4 11/01 06:38 Order name: LFT's; Complete Time: 07:57 sp 11/01 06:38 Order name: Magnesium; Complete Time: 07:57 sp4 11/01 06:38 Order name: NT PRO-BNP; Complete Time: 07:57 sp4 11/01 06:38 Order name: PT-INR; Complete Time: 07:57 sp4 11/01 06:38 Order name: Troponin HS; Complete Time: 07:57 sp4 11/01 06:38 Order name: Influenza Screen (a \T\ B); Complete Time: 07:57 [facility] 11/01 07:19 Order name: Lipase; Complete Time: 07:57 [facility] 11/01 07:46 Order name: D-Dimer; Complete Time: 08:25 [facility] 11/01 06:38 Order name: XRAY Chest (1 view); Complete Time: 08:25 [facility] 11/01 07:58 Order name: US Extremity Venous W Compression Jaison [facility] 11/01 08:56 Order name: Chest For PE Angio CT la1 11/01 06:38 Order name: Cardiac monitoring; Complete Time: 06:59 sp4 11/01 06:38 Order name: EKG - Nurse/Tech; Complete Time: 06:59 [facility] 11/01 06:38 Order name: IV Saline Lock; Complete Time: 06:59 sp4 11/01 06:38 Order name: Labs collected and sent; Complete Time: 06:59 sp4 12 06:38 Order name: O2 Per Protocol; Complete Time: :59 sp4 11/01 06:38 Order name: O2 Sat Monitoring; Complete Time: :59 sp4 EC:51 Rate is 74 beats/min. Rhythm is regular, Normal Sinus Rhythm. QRS [place] is Normal. [place] sp4 interval is normal. QRS interval is normal. QT interval is normal. No Q waves. T waves are Normal. No ST changes noted. Clinical impression: Normal ECG. Interpreted by me. Reviewed by me. Administered Medications: 07:25 CANCELLED (given by EMS ): aspirinchewable tablet 324 mg PO once; 81 mg tablets x 4 iw 07:40 Drug: NS 0.9% IV 500 ml 500 ml IV at 1 bolus once; to be given as a bolus over 30 iw minutes Volume: 500 ml; Route: IV; Rate: 1 bolus; Site: right antecubital; 10:00 Follow up: Response: No adverse reaction; IV Status: Completed infusion; IV Intake: tm6 500ml 07:40 Drug: Famotidine IVP 20 mg IVP once; dilute with 10 mL 0.9% NaCl; give over 2 minutes iw Route: IVP; Site: right antecubital; 10:06 Follow up: Response: No adverse reaction tm6 Disposition Summary: 11/01/24 08:00 Hospitalization Ordered Notes: Hospitalization Status: Observation theodore Provider: Vic Castro cha Location: Telemetry/MedSurg (observation) theodore Condition: Stable theodore Problem: new theodore Symptoms: have improved theodore Bed/Room Type: Standard theodore Room Assignment: 217(11/01/24 09:22) eb Diagnosis - Chest pain, unspecified theodore - Obesity, unspecified theodore - Dizziness and giddiness theodore - Essential (primary) hypertension theodore Forms: - Medication Reconciliation Form theodore - SBAR form theodore - Leadership Thank You Letter theodore Signatures: Dispatcher [employer] Bob Davis MD MD cha Williams, Irene RN RN iw Chris Spears, JIHAN-C COMMUNITY NUTRITION EDUCATOR-Cla1 Fadumo Blum Sergey, MD MD sp4 Patrizia Madison RN RN al5 Odette Cormier RN tm6 Corrections: (The following items were deleted from the chart) 06:38 06:38 Chest Single View+RAD.RAD.BRZ ordered. EDMS EDMS 06:39 06:39 Influenza Screen (A \T\ B)+BA.LAB.BRZ ordered. EDMS EDMS 07:25 07:19 Aspirin PO Chewable Tablet 324 mg PO once; 81 mg tablets x 4 ordered. theodore iw 09:22 08:00 theodore eb
--- NOTE | 2024-11-01 08:13 | RAD REPORT ---
EXAMINATION: ONE VIEW CHEST XR CLINICAL INDICATION: Female, 49 years old.,CHEST PAIN TECHNIQUE: Frontal chest projection is submitted. Examination is limited by patient positioning and t echnique. COMPARISON: 12/27/2023 FINDINGS: The lungs are well inflated and clear. No pneumothorax or sizable effusion. The heart is normal in s ize. Mediastinal contours are unremarkable. IMPRESSION: No acute intrathoracic abnormalities.
--- NOTE | 2024-11-01 08:55 | RAD REPORT ---
EXAMINATION: US Extrem Venous W Compress Jaison CLINICAL INDICATION: [facility] MAIN Swelling;Pain Bed Name: 5 N TECHNIQUE: Complete bilateral duplex sonography of the BILATERAL lower extremity veins was performed. The examination included compression for vein patency, color Doppler imaging and flow augmentation in response to distal compression of the distal external iliac, common femoral, femoral, popliteal, t ibial, and great and small saphenous veins. COMPARISON: No prior exam. FINDINGS: Duplex sonography testing of the veins of the BILATERAL lower extremity was performed. Color flow ray ging shows all veins to be compressible with [id number] color filling. Pulsatile and phasic flow is present within all lower extremity deep and superficial veins examined. Crescentic left popliteal fossa collection, measuring 2.9 cm in greatest dimension. IMPRESSION: No evidence of deep vein or superficial vein thrombosis bilaterally. Left popliteal fossa Garcia's cyst.
[2024-11-01] MEDS ORDERED: ONDANSETRON 4 MG/2 ML VIAL IV PRN (09:46)
[2024-11-01] MEDS ORDERED: MORPHINE 2 MG/ML SYR IV PRN (09:46)
--- NOTE | 2024-11-01 09:53 | RAD REPORT ---
EXAM: CT Chest For Pe Angio TECHNIQUE: CT angiogram of the chest was performed following intravenous contrast administration, inc luding sagittal and coronal as well as maximum intensity projection reformats. One or more of the following dose reduction techniques were used: Automated exposure control, adjustment of the mA and k V according to patient size, and iterative reconstruction. Unless otherwise specified, incidental findings do not require dedicated imaging follow-up. INDICATION: HS MAIN + DDIMER, RODRIGUEZ;Chest pain Bed Name: 5 N COMPARISON: 03/25/2023 CT chest. Chest radiograph of earlier the same day. FINDINGS: LINES/TUBES: None. PULMONARY ARTERIES: Main pulmonary arteries are normal in caliber. No filling defects within the pul monary arteries to suggest pulmonary embolus, although somewhat suboptimal contrast timing limits evaluation.. LUNGS AND AIRWAYS: The lungs and central airways are normal without focal abnormality. PLEURA: No effusion or pneumothorax. HEART AND MEDIASTINUM: The visualized thyroid gland is normal. No mediastinal, hilar, or axillary lym phadenopathy. Heart is unremarkable. No pericardial effusion. SOFT TISSUES AND BONES: No acute osseous abnormality. No significant soft tissue finding. UPPER ABDOMEN: Diffuse hepatic steatosis. IMPRESSION: No evidence of acute central pulmonary emboli. No suspicious intrathoracic findings. Diffuse hepatic parenchymal hypoattenuation suggesting steatosis.
--- NOTE | 2024-11-01 10:01 | P.HP ---
Certification for Inpatient Patient admitted to: Observation With expected LOS: <2 Midnights Patient will require the following post-hospital care: None Practitioner: I am a practitioner with admitting privileges, knowledge of patient current condition, hospital course, and medical plan of care. Services: Services provided to patient in accordance with Admission requirements found in Title 42 Section 412.3 of the Code of Federal Regulations Patient History Date of Service: 11/01/24 Reason for admission: Chest pain, dizziness History of Present Illness: 49-year-old female with history of chronic diastolic congestive heart failure presents to the emergency department with chief complaint of dizziness, chest pain. She reports that when she woke up this morning to her alarm she sat up and quickly became lightheaded/dizzy. Her symptoms subsided a few minutes later, she checked her blood pressure and found to be elevated, around that time she developed some tightness in her chest along with shortness of breath and for that reason came to the emergency department. Patient was evaluated in the emergency department her initial high-sensitivity troponin was 10.7 BNP of 254 she does have chronic lower extremity edema, venous Dopplers negative bilaterally, CTA of the chest was also performed since her D- dimer was positive which was negative for acute findings. She is on Bumex 1 mg twice daily and has been compliant with this. She thinks her last stress test was earlier this year in November but cannot be sure, last echocardiogram performed here December 28 showed normal LVEF, normal wall motion. ED provider wishes to admit under observation for ACS rule out. Allergies clarithromycin [From Biaxin] Allergy (Verified 03/25/23 04:39) Itching/Hives/Rash Home Medications: Bumetanide [Bumex*] 1 mg PO BID 12/27/23 Meloxicam [Mobic] 15 mg PO DAILY 12/27/23 - Past Medical/Surgical History -: Chronic diastolic congestive heart failure -: Hypertension -: arthritis Psychosocial/ Personal History: Patient lives at home with family - Social History Alcohol use: No CD- Drugs: No Caffeine use: Yes Place of Residence: Home Review of Systems 10-point ROS is otherwise unremarkable Respiratory: Shortness of Breath Cardiovascular: Chest Pain, Light Headedness Physical Examination - Physical Exam General: Alert, In no apparent distress, Oriented x3 HEENT: Atraumatic, PERRLA, EOMI Neck: Supple, 2+ carotid pulse no bruit, No LAD Respiratory: Clear to auscultation bilaterally, Normal air movement Cardiovascular: Regular rate/rhythm, Normal S1 S2 Gastrointestinal: Normal bowel sounds Musculoskeletal: No tenderness Integumentary: No rashes Neurological: Normal speech, Normal strength at 5/5 x4 extr, Normal tone - Studies Laboratory Data (last 24 hrs) 11/01/24 11/01/24 11/01/24 06:46 06:46 06:46 WBC 5.40 Hgb 13.4 Hct 39.4 Plt Count 304 PT 11.7 INR 1.05 Sodium Potassium BUN Creatinine Glucose Magnesium Total Bilirubin AST ALT Alkaline Phosphatase Lipase 43 11/01/24 06:46 WBC Hgb Hct Plt Count PT INR Sodium 141 Potassium 3.4 L BUN 12 Creatinine 0.78 Glucose 112 H Magnesium 2.0 Total Bilirubin 0.5 AST 25 ALT 40 Alkaline Phosphatase 70 Lipase Microbiology Data (last 24 hrs): 11/01/24 06:46 Nasopharnyx Influenza Type A Antigen Screen - Final 11/01/24 06:46 Nasopharnyx Influenza Type B Antigen Screen - Final Assessment and Plan - Plan Assessment: Chest pain rule out ACS Dizziness/lightheadedness Chronic diastolic congestive heart failure Arthritis Plan: Chest pain rule out ACS Dizziness/lightheadedness Chronic diastolic congestive heart failure Trend troponins and monitor on telemetry Cardiology consulted She thinks she had a stress test earlier this year Obtain orthostatic vitals Continue aspirin, Bumex Arthritis Continue home medications DVT PPX: Lovenox Code status: Full Discharge Plan: Home Plan to discharge in: 24 Hours - Advance Directives Does patient have a Living Will: No Does patient have a Durable POA for Healthcare: No - Code Status/Comfort Care Code Status Assessed: Yes (Full code) Critical Care: No Time Spent Managing Pts Care (In Minutes): 52
[2024-11-01 10:30] VITALS: BMI 53.7
[2024-11-01] MEDS: ENOXAPARIN 40 MG/0.4 ML SQ SCH (11:09)
[2024-11-01] MEDS: ASPIRIN EC 81 MG TAB PO SCH (11:09)
[2024-11-01] MEDS: FLU (Fluarix Triv) TS24-25(6MOS UP)/PF 45 MCG/0.5 ML Syringe IM ONE (12:32)
[2024-11-01 12:49] VITALS: O2SAT 98
[2024-11-01] MEDS ORDERED: MECLIZINE HCL 12.5 MG TAB PO PRN (16:18)
[2024-11-01] MEDS: MECLIZINE HCL 12.5 MG TAB PO ONE (17:09)
[2024-11-01] MEDS: BUMETANIDE 1 MG TABLET PO SCH (17:09)
[2024-11-01] MEDS: lisinopriL 10 MG TAB PO ONE (17:09)
[2024-11-01] MEDS: ATORVASTATIN 40 MG TAB PO SCH (20:27)
[2024-11-01] MEDS ORDERED: BUMETANIDE 1 MG TABLET PO SCH (21:00)
--- NOTE | 2024-11-01 22:18 | CON ---
Date of Consultation: 11/01/2024 Reason For Consultation: Chest pain. History Of Present Illness: This is a 49-year-old female with a past medical history of hypertension , diastolic heart failure, arthritis, and obesity, presented to the emergency room with chest pain, d anatoliyness. The chest pain is left sided, short lived and claimed that she has been having also dizzy spells. Sometimes she feels like she is about to pass out. The main reason she presented to the [facility] room was the dizziness. At that time, she reported her blood pressure being in 160 range. Sh mayito denies having any chest pain now. No nausea, vomiting, diarrhea. No abdominal pain. Past Medical History: As outlined above in the HPI. Medications: Refer reconciliation sheet for detailed list. Allergies: CLARITHROMYCIN. Family History: No premature coronary artery disease or cancer. Social History: Does not smoke or drink. Does not use any drugs. Review of Systems: All systems reviewed and they were negative except mentioned in the HPI. Physical Examination: Vital Signs: Reviewed. Head and Neck: Pupils are equal, reactive to light. Intact eye movements. No JVD. No cervical lym phadenopathy. Neck supple. Thyroid is not enlarged. Lungs: Clear to auscultation bilaterally. No rhonchi, wheezing, or crackles. No accessory muscle u se. Heart: Regular rate and rhythm. No extra sounds. Abdomen: Soft, nontender. Bowel sounds positive. No organomegaly. No masses or hernia. No rigidi ty or rebound. Extremities: No edema, clubbing, cyanosis. Intact pulses. Skin: No rash. No nodules. Neurologic: Alert, awake, oriented x3. No acute focal deficits appreciated. Investigations: BUN 12, creatinine 0.78. Troponins are negative. Hemoglobin is 13.4. Assessment/recommendation: 1.Chest pain. It is atypical. Cardiac enzymes are negative. From Cardiology standpoint, she can b e released. Follow up with me early next week. We will plan for outpatient stress test and an echo. 2.Dizziness, unclear etiology. I will plan to do a 1 week Holter monitor on her and check her carot id arteries as an outpatient. Recommend gentle hydration and discharge and then follow up with me in the office on Monday. 3.Dyslipidemia. Continue statin. 4.Diastolic heart failure. She appears to be euvolemic. SR/MODL Voice ID: [id number] Report ID: [id number]
[2024-11-02 06:19] LABS: Absolute Eosinophils 0.2 K/uL (0-0.5); Absolute Lymphocytes (CBC) 1.7 K/uL (0.7-4.9); Absolute Monocytes 0.5 K/uL (0.1-1.3); Absolute Neutrophil 3.1 K/uL (1.8-8.0); Basophils % 0.5 % (0-1.3); Hematocrit 37.3 % (36.0-45.0); Hemoglobin 12.9 g/dL (12.0-15.0); MCH 30.5 pg (27.0-35.0); MCHC 34.5 g/dL (32.0-36.0); MCV 88.4 fL (80-100); MPV 6.7 fL (7.6-11.3); Monocytes % 9.2 % (3.3-12.3); Neutrophils % 56.3 % (41.7-73.7); Nucleated Red Blood Cells % 0.1 % (0-0); Platelets 280 thou/uL (152-406); RBC Red Blood Cell Count 4.23 M/uL (3.86-4.86); Red Cell Distribution Width 13.1 % (12.1-15.2)
[2024-11-02 06:35] LABS: Anion Gap 6.6 mEq/L (5.0-15.0); Potassium 3.6 mEq/L (3.5-5.1)
[2024-11-02 08:40] VITALS: TEMP 97.9
[2024-11-02] MEDS: lisinopriL 5 MG TAB PO SCH (09:33)
[2024-11-02] MEDS: POTASSIUM CL SA 10 MEQ TAB PO SCH (09:33)
[2024-11-02 10:41] VITALS: BP 143/72
--- NOTE | 2024-11-02 14:07 | P.DS ---
Admission Date: 11/01/24 Discharge Date: 11/02/24 Disposition: ROUTINE DISCHARGE Discharge Condition: GOOD Reason for Admission: Chest pain, dizziness Brief History of Present Illness: 49-year-old female with history of chronic diastolic congestive heart failure presents to the emergency department with chief complaint of dizziness, chest pain. She reports that when she woke up this morning to her alarm she sat up and quickly became lightheaded/dizzy. Her symptoms subsided a few minutes later, she checked her blood pressure and found to be elevated, around that time she developed some tightness in her chest along with shortness of breath and for that reason came to the emergency department. Patient was evaluated in the emergency department her initial high-sensitivity troponin was 10.7 BNP of 254 she does have chronic lower extremity edema, venous Dopplers negative bilaterally, CTA of the chest was also performed since her D- dimer was positive which was negative for acute findings. She is on Bumex 1 mg twice daily and has been compliant with this. She thinks her last stress test was earlier this year in November but cannot be sure, last echocardiogram performed here December 28 showed normal LVEF, normal wall motion. ED provider wishes to admit under observation for ACS rule out. Hospital Course: Assessment: Chest pain rule out ACS Dizziness/lightheadedness Chronic diastolic congestive heart failure Arthritis Patient was admitted to the hospital for chest pain, dizziness. Her blood pressure was also noted to be elevated, she is not taking any antihypertensives currently at home. She was admitted, troponins were trended and negative/flat. She was given lisinopril 5 mg and meclizine and her symptoms have significantly improved/resolved. She was seen by cardiology who recommends close follow-up, will be seen on Monday morning at 8 AM for further evaluation from cardiology. Medications as previously prescribed Prescription for lisinopril 5 mg daily sent to pharmacy you may use meclizine [id number] as instructed on bottle for dizziness Vital Signs/Physical Exam: Temp Pulse Resp BP Pulse Ox 97.9 F 79 16 143/72 H 95 11/02/24 08:00 11/02/24 10:40 11/02/24 09:49 11/02/24 10:40 11/02/24 08:00 General: Alert, In no apparent distress, Oriented x3 HEENT: Atraumatic, PERRLA Neck: Supple, JVD not distended Respiratory: Clear to auscultation bilaterally, Normal air movement Cardiovascular: Regular rate/rhythm, Normal S1 S2 Gastrointestinal: Normal bowel sounds, No tenderness Musculoskeletal: No tenderness Integumentary: No rashes Neurological: Normal speech, Normal affect Laboratory Data at Discharge: WBC 5.50 thou/uL (4.3-10.9) 11/02/24 05:42 Hgb 12.9 g/dL (12.0-15.0) 11/02/24 05:42 Hct 37.3 % (36.0-45.0) 11/02/24 05:42 Plt Count 280 thou/uL (152-406) 11/02/24 05:42 PT 11.7 SECONDS (9.4-12.5) 11/01/24 06:46 INR 1.05 11/01/24 06:46 Sodium 141 mEq/L (136-145) 11/02/24 05:42 Potassium 3.6 mEq/L (3.5-5.1) 11/02/24 05:42 BUN 11 mg/dL (7-18) 11/02/24 05:42 Creatinine 0.71 mg/dL (0.55-1.02) 11/02/24 05:42 Glucose 101 mg/dL (74-106) 11/02/24 05:42 Magnesium 2.0 mg/dL (1.6-2.4) 11/01/24 06:46 Total Bilirubin 0.5 mg/dL (0.2-1.0) 11/01/24 06:46 AST 25 U/L (15-37) 11/01/24 06:46 ALT 40 U/L (13-56) 11/01/24 06:46 Alkaline Phosphatase 70 U/L (45-117) 11/01/24 06:46 Lipase 43 U/L (13-75) 11/01/24 06:46 Home Medications: Bumetanide [Bumex*] 1 mg PO BID 12/27/23 Meloxicam [Mobic] 15 mg PO DAILY 12/27/23 Acetaminophen [Tylenol Extra Strength] 1,000 mg PO Q6H PRN 11/01/24 lisinopriL [Lisinopril] 5 mg PO DAILY #30 tab 11/02/24 New Medications: lisinopriL [Lisinopril] 5 mg PO DAILY #30 tab Physician Discharge Instructions: Patient was admitted to the hospital for chest pain, dizziness. Her blood pressure was also noted to be elevated, she is not taking any antihypertensives currently at home. She was admitted, troponins were trended and negative/flat. She was given lisinopril 5 mg and meclizine and her symptoms have significantly improved/resolved. She was seen by cardiology who recommends close follow-up, will be seen on Monday morning at 8 AM for further evaluation from cardiology. Medications as previously prescribed Prescription for lisinopril 5 mg daily sent to pharmacy you may use meclizine [id number] as instructed on bottle for dizziness Diet: AHA Activity: Ad nicolle Followup: NONE,NONE [Primary Care Provider] - 1 Week Jesus Pimentel MD [ACTIVE - CAN ADMIT] - 2-3 Days Time spent managing pt's care (in minutes): 32
== END 2024-11-02 11:07 | disposition home or self-care (01) ==
LOC: ER 06:36 → 2ND 08:55
PROVIDERS: ADMIT Hospitalist; ATTEND Hospitalist
DX: R07.89 Other chest pain (principal); R42 Dizziness and giddiness; I50.32 Chronic diastolic (congestive) heart failure; M19.90 Unspecified osteoarthritis, unspecified site; I10 Essential (primary) hypertension; E66.9 Obesity, unspecified; E78.5 Hyperlipidemia, unspecified; Z88.1 Allergy status to other antibiotic agents; Z68.43 Body mass index [BMI] 50.0-59.9, adult
CPT/HCPCS: 96361; 85025 ×2; 80048 ×2; 36415; 83735; 85610; 85379; 80076; 84484 ×3; 83690; 83880; 87804 ×2; 71275; 71045; 93970; 96374; 99285; Q9967; J8597; J1650 ×2; J7040; G0378

== ENCOUNTER 2025-02-20 08:41 | Day surgery (SDC) | payer BC ==
[2025-02-17 16:32] LABS: Anion Gap 6.4 mEq/L (5.0-15.0); Potassium 3.4 mEq/L (3.5-5.1)
[2025-02-17 16:46] LABS: Absolute Eosinophils 0.2 K/uL (0-0.5); Absolute Lymphocytes (CBC) 2.5 K/uL (0.7-4.9); Absolute Monocytes 0.6 K/uL (0.1-1.3); Basophils % 0.5 % (0-1.3); Eosinophils % 2.3 % (0-4.4); Hematocrit 37.7 % (36.0-45.0); Hemoglobin 12.9 g/dL (12.0-15.0); Lymphocytes % 33.5 % (15.3-44.8); MCH 30.1 pg (27.0-35.0); MCHC 34.3 g/dL (32.0-36.0); MCV 87.6 fL (80-100); Monocytes % 8.6 % (3.3-12.3); Neutrophils % 55.1 % (41.7-73.7); Platelets 279 thou/uL (152-406); RBC Red Blood Cell Count 4.31 M/uL (3.86-4.86); Red Cell Distribution Width 12.9 % (12.1-15.2)
[2025-02-20] MEDS: Ringers Lactate 1,000 ML IV ONE (09:17)
[2025-02-20] MEDS ORDERED: ONDANSETRON 4 MG/2 ML VIAL ONE (09:18)
[2025-02-20] MEDS ORDERED: propofoL 200 MG/20 ML VIAL IV ONE (09:18)
[2025-02-20] MEDS ORDERED: LIDOCAINE 2% MPF 5 ML VIAL ONE (09:18)
[2025-02-20] MEDS ORDERED: MIDAZOLAM HCL 2 MG/2 ML INJ ONE (09:18)
[2025-02-20] MEDS ORDERED: FENTANYL CITR 100 MCG/2 ML ONE (09:18)
[2025-02-20] MEDS ORDERED: LIDOCAINE HCL/EPINEPHRINE 20 ML MDV ONE (09:27)
[2025-02-20] MEDS ORDERED: SILVER NITRATE 1 APPL TOP ONE (09:27)
[2025-02-20] MEDS ORDERED: dexAMETHasone 10 MG/ML VIAL ONE (10:25)
[2025-02-20] MEDS ORDERED: EPHEDRINE SULF 50 MG/ML VIAL ONE (10:34)
[2025-02-20] MEDS ORDERED: IBUPROFEN 200 MG TAB PO PRN (11:50)
--- NOTE | 2025-02-20 11:56 | P.BOP ---
Preoperative diagnosis: post menopausal bleeding, Endometrial polyps Postoperative diagnosis: same Primary procedure: Hysteroscopy Polypectomy and endometrial curettage with myosure lite Furnace Operator: NONE,NONE Estimated blood loss: min Specimen: polyps, EMC Findings: polyps and thick lining, all polyps completely removed adn sampled Anesthesia: General Complications: None Transferred to: Recovery Room Condition: Good
[2025-02-20 12:09] VITALS: BP 145/71; TEMP 99; O2SAT 97
--- NOTE | 2025-02-20 12:10 | OP ---
Date of Procedure: 02/20/2025 Surgeon: Nicolle Ellsworth MD Clinical Staff Pharmacist: No assistants. Preoperative Diagnoses: Postmenopausal bleeding, endometrial polyps. Postoperative Diagnoses: Postmenopausal bleeding, endometrial polyps. Procedures Performed: Diagnostic hysteroscopy, polypectomy, and dilation and curettage with MyoSure Lite. Anesthesia: General with LMA. Specimens: Endometrial curettings and polyps. Complications: No complications. Drains: No drains. Condition: Stable. Findings: 2 endometrial polyps, one large central midline and one right cornual end polyp were noted . Rest of the endometrium was polypoid. Complete resection of the polyps and the polypoid endometri um was sampled adequately. Estimated Blood Loss: Minimal, less than 25. Counts: Correct. Indications: The patient is a 49-year-old female presenting with postmenopausal bleeding. Endometri al stripe was thickened on ultrasound, so endometrial sampling was indicated and patient was brought into the office for cavity evaluation and sampling. On hysteroscopy in the office, there were significant polyps that needed to be removed and therefore once the diagnostic hysteroscopy was performed, this information was available. She was consented fo r a polypectomy and D and C at the hospital for adequate sampling. Bleeding, infection, perforation of the uterus were all reviewed and she was consented. She was re-consented in the preoperative area. Her mother was present by her side. Description Of Procedure: She was then taken back to the OR, placed in supine fashion on the operati ng table. General anesthesia was given. She was placed in a dorsal lithotomy position using Cornel s tirrups. Lower abdomen, vulva, vagina were prepped with Betadine and draped in a sterile fashion. A nterior lip was grasped with 2 Allis clamps. After exposing the cervix with a speculum, then the cer vix was dilated to 16-Serbian. Then, the MyoSure scope was primed in its entire system. Then, the sc ope was passed under direct visualization through the cervical canal into the uterine cavity. The po lyps were noted. The draining cannula was removed and the MyoSure Lite device was inserted. Polypec marni was performed and sampling of all 4 schwarz of the endometrium was performed as well with the radha ce and all the instruments were removed. Fluid deficit was minimal. The specimen was retrieved, tremaine yps, endometrial curettings and handed out for permanent pathology. The instruments were removed. I nstrument, needle and sponge counts were done and were correct at the end the case. The patient kimberly rated the procedure well. She will follow up with me in 7-10 working days for results. Her mother w as debriefed about her procedure. LUIS Voice ID: [id number] Report ID: [id number]
[2025-02-20] MEDS ORDERED: BUMETANIDE 1 MG TABLET PO SCH (21:00)
[2025-02-21] MEDS ORDERED: lisinopriL 5 MG TAB PO SCH (09:00)
[2025-02-21] MEDS ORDERED: HOME MED 1 EA UNK (Meloxicam [Mobic] 15 MG Tablet) PO SCH (09:00)
== END 2025-02-20 12:45 | disposition home or self-care (01) ==
LOC: OR 08:41
PROVIDERS: ADMIT Obstetrics & Gynecology; ATTEND Obstetrics & Gynecology
PROC: 0UDB8ZX Extraction of Endometrium, Via Natural or Artificial Opening Endoscopic, Diagnostic (ICD-10-PCS; principal; 2025-02-20 10:00)
DX: N95.0 Postmenopausal bleeding (principal); N84.0 Polyp of corpus uteri
CPT/HCPCS: 36415; 80048; 85025; 88305; J1100; J2003; J2250; J2405; J2704; J3010; J7120